=== PATIENT | female | born 1965 | race Caucasian/White ===

== ENCOUNTER 2020-02-03 15:49 | Outpatient (CLI) | payer OTHER, SELFPAY ==
--- NOTE | ~2020-02-03 | XR_ITS ---
XR chest 2V DATE: 02/03/2020 16:08 INDICATION: Rodgers virus respiratory disease TECHNIQUE: PA and lateral views COMPARISON: 11/07/2017 portable AP chest at 1940 hours FINDINGS: There is mild discoid atelectasis or scarring in the right lower lung. No pulmonary consol idation, pulmonary vascular congestion or pleural effusion or pneumothorax. Normal heart size. Surgical clips, right upper quadrant. IMPRESSION: Discoid atelectasis or scarring, right lower lung Reviewed, dictated and finalized at location A.
== END 2020-02-03 15:50 | disposition home or self-care (01) ==
PROVIDERS: PCP Physician Assistant; Visit Provider Physician Assistant
DX: J06.9 Acute upper respiratory infection, unspecified (principal); Z20.828 Contact with and (suspected) exposure to other viral communicable diseases; R91.8 Other nonspecific abnormal finding of lung field
CPT/HCPCS: 71046

== ENCOUNTER → 2020-10-20 17:42 | Outpatient (CLI) | payer OTHER, SELFPAY ==
--- NOTE | ~2020-10-20 | MM_ITS ---
EXAMINATION: MM screening haylie BI w ruben HISTORY: Screening mammogram TECHNIQUE: Craniocaudal and mediolateral oblique 3-D tomosynthesis images were obtained and synthetic 2-D images were generated. CAD analysis was submitted and interpreted. COMPARISON: , 04/01/2014 bilateral digital screening mammogram examinations BREAST PARENCHYMAL COMPOSITION: There are scattered areas of fibroglandular density. FINDINGS: There is no evidence of suspicious mass, calcification, or architectural distortion to sugg est malignancy in either breast. There has been no suspicious interval change. IMPRESSION: 1. No mammographic evidence of malignancy. 2. Recommend routine screening mammography in one year. BI-RADS Category 1: Negative Reviewed, dictated and finalized at location A.
== END ==
PROVIDERS: Visit Provider Physician Assistant
DX: Z12.31 Encounter for screening mammogram for malignant neoplasm of breast (principal)
CPT/HCPCS: 77063; 77067

== ENCOUNTER 2024-01-08 13:23 | Outpatient (CLI) | payer OTHER, SELFPAY ==
--- NOTE | ~2024-01-08 | MM_ITS ---
EXAMINATION: MM screening haylie BI w ruben HISTORY: Screening TECHNIQUE: Craniocaudal and mediolateral oblique 3-D tomosynthesis images were obtained and synthetic 2-D images were generated. CAD analysis was submitted and interpreted. COMPARISON: Comparison to multiple prior studies sequentially, with oldest reviewed study dated 03/23. BREAST PARENCHYMAL COMPOSITION: Not dense: There are scattered areas of fibroglandular density. FINDINGS: There is no evidence of suspicious mass, calcification, or architectural distortion to sugg est malignancy in either breast. There has been no suspicious interval change. IMPRESSION: 1. No mammographic evidence of malignancy. 2. Recommend routine screening mammography in one year. BI-RADS Category 1: Negative Reviewed, dictated and finalized at location B.
== END 2024-01-08 13:24 ==
LOC: MICIMG 13:26
PROVIDERS: PCP Physician Assistant; Visit Provider Physician Assistant
DX: Z12.31 Encounter for screening mammogram for malignant neoplasm of breast (principal)
CPT/HCPCS: 77063; 77067

== ENCOUNTER 2024-06-08 14:44 | Outpatient (CLI) | payer OTHER, SELFPAY ==
--- NOTE | ~2024-06-08 | US_ITS ---
EXAMINATION: US renal BI DATE: 06/08/2024 15:02 INDICATION: Elevated creatinine. Left flank pain. TECHNIQUE: Multiple ultrasound grayscale images of the kidneys were obtained. COMPARISON: 11/05/2014 FINDINGS: The right kidney measures 11.5 x 6.2 x 5.6 cm. The left kidney measures 11.3 x 5.7 x 4.2 cm. The kidn eys demonstrate normal echogenicity. 1.2 cm anechoic cyst at the mid right kidney. There is no hydron ephrosis in either kidney. No stones identified. The bladder is normal. IMPRESSION: 1. 1.2 cm right renal cyst. Otherwise normal kidneys without hydronephrosis. Reviewed, dictated and finalized at location A. EY DOCTOR
== END 2024-06-08 14:45 | disposition home or self-care (01) ==
LOC: MICIMG 14:45
PROVIDERS: PCP Physician Assistant; Visit Provider Physician Assistant
DX: R79.89 Other specified abnormal findings of blood chemistry (principal); N28.1 Cyst of kidney, acquired
CPT/HCPCS: 76775

== ENCOUNTER 2024-07-13 16:54 | Outpatient (CLI) | payer OTHER, SELFPAY ==
--- NOTE | ~2024-07-13 | CT_ITS ---
CLINICAL INDICATION: Abdominal pain COMPARISON: 11/05/2014. TECHNIQUE: Multiple contiguous axial images of the abdomen and pelvis were performed without the admi nistration of intravenous contrast The dose-length product (DLP) was 867.25 mGy-cm. Automated exposure control and iterative reconstruction technique were employed. FINDINGS/OBSERVATIONS: Visualized lower thorax: The bilateral lung bases are clear. The heart is of normal size, without pericardial effusion. Small hiatal hernia is present. Liver: The liver demonstrates homogeneous attenuation and is not enlarged measuring 18 cm in longitudinal di mension. Gallbladder and biliary system: The gallbladder is surgically absent. Pancreas: Limited evaluation of the pancreas secondary to the lack of intravenous contrast. Spleen: The spleen demonstrates homogeneous attenuation and is not enlarged measuring 9 cm in longitudinal di mension. Kidneys: The bilateral kidneys are unremarkable, without hydronephrosis or renal calculi. Adrenal glands: Unremarkable. Gastrointestinal tract: Fecal stasis within the rectum. Appendix: The air-filled appendix is of normal caliber (axial series, images 112 - 132) Vasculature: Unremarkable. Lymph nodes: No pathologically enlarged or morphologically suspicious lymph nodes within the retroperitoneum or at the root of the mesentery. Pelvic structures: The bladder is distended, and otherwise unremarkable. The uterus is anteverted and retroflexed, and otherwise unremarkable. Body wall and musculoskeletal: Degenerative disease within the lumbar spine, with osteophyte formation, disc space narrowing, endpla te changes and vacuum phenomena. IMPRESSION: No acute intra-abdominal pathology, as detailed above. Reviewed, dictated and finalized at location A. [employer]
--- OUTSIDE RECORDS SUMMARY | 2024-07-15 20:07 | XMS_ITS | Data Portability ---
Author Organization [place] [facility] [employer], Main Office Address [address] [place] [address] Care Team Providers Care Multimedia Services Manager Name Role Phone JOSE RAMON PRICE Primary Care Provider [phone] JOSE RAMON PRICE Referring Provider [phone] Assessment Encounter Date Assessment Date Assessment LastModified by Organization Details LastModified Time 09/05/2022 09/05/2022 cologuard negative 07/2020 pt encouraged to schedule gyne exam mammogram due. labs due. eye and dental due. [email or web address] Not available 09/05/2022 09:24:10 Plan of Treatment Reminders Order Date Submit Date Provider Last Modified By Organization Details Last Modified Time Details Appointments None recorded. Lab TSH + free T4, serum 2022 023 [facility], [address], [place], [address], 3 16:29:19 T3, free, serum or plasma 2022 023 [facility], [address], [place], [address], 3 16:29:22 insulin, serum 2022 023 [employer], [address], [place], [address], 3 16:29:27 lipid panel, serum 2022 023 [facility], [address], [place], [address], 3 16:29:20 CBC w/ auto diff [address] [facility], [address], [place], [address], 3 16:29:23 CMP, serum or plasma 2022 023 [facility], [address], [place], [address], 3 16:29:21 urinalysis complete, reflex culture 2022 023 [facility], [address], [place], [address], 3 16:29:24 C-reactive protein, quantitativ e, serum or plasma 2022 023 [facility], [address], [place], [address], 3 16:29:26 rf (rheumatoid factor), serum 2022 023 [facility], [address], [place], [address], 3 16:29:25 HbA1c (hemoglobin A1c), blood 2022 023 [facility], [address], [place], [address], 3 16:29:22 Referral None recorded. Procedures None recorded. Surgeries None recorded. Imaging MAMMO, screening, digital, bilateral 2022 023 [facility], [address], [place], [address], 3 05:02:16 Medication Orders Wegovy 0.25 mg/0.5 mL subcutaneou s pen injector 2022 023 [id number], [address] [place], [address], 3 09:26:25 alprazolam 0.25 mg tablet 2022 023 [id number], [address] [place], [address], 3 09:35:31 Wellbutrin XL 150 mg 24 hr tablet, extended release 2022 023 [email or web address] [id number] [address] [place], [address], 3 16:00:53 ergocalcife rol (vitamin D2) 1,250 mcg (50,000 unit) capsule 2022 023 [facility], [address] [place], [address], 3 09:26:26 chlorthalid one 25 mg tablet 2022 023 [facility], [address] [place], [address], 3 09:26:27 Patient TargetsNo targets recorded. Patient InstructionsNo instructions recorded. Reason for Referral None Reported. Results Created Date Observation Date Name Description Value Unit Range Abnormal Flag Note LastModifiedBy Organization Detail LastModifiedTime 09/07/1909/07/2022 TSH+F REE T4 TSH 3.37 mIU/L 0.40-4 .50 normal Not Available [facility] [address] [place], [address], 09/07/2022 16:29:19 09/07/19 23 09/07/2022 TSH+F REE T4 T4, free 1.3 NG/dL 0.8-1. 8 normal Not Available [address] [address] [place], [address], 09/07/2022 16:29:19 09/07/19 23 09/07/2022 LIPID PANEL WITH RATIO S cholesterol, total 173 mg/dL <200 normal Not Available [address] [address] [place], [address], 09/07/2022 16:29:20 09/07/19 23 09/07/2022 LIPID PANEL WITH RATIO S HDL cholesterol 58 mg/dL > or = 50 normal Not Available [address], [address], 09/07/2022 16:29:20 09/07/19 23 09/07/2022 LIPID PANEL WITH RATIO S triglyceride s 96 mg/dL <150 normal Not Available [address], [address], 09/07/2022 16:29:20 09/07/19 23 09/07/2022 LIPID PANEL WITH RATIO S LDL-choleste rol 96 mg/dL _(ferny c) normal Refer ence range : <100 Chuy able range <100 mg/dL for prima ry preve ntion ; <70 mg/dL for patie nts with CHD or diabe tic patie nts with > or = 2 CHD risk facto rs. LDL-C is now calcu lated using the Monica n-Hop kins calcu raleigh n, which is a valid ated novel metho d provi narda nogueira accur acy than the Fried della equat ion in the estim ation of LDL-C . Monica crum SS et al. ONESIMO. 2013; 310(1 9): 2061- 2068 (http ://ed ucati on.Qu Priscila garsiaCoravins. com/f aq/FA Q164) Not Available [facility] [address] [address] [place], [address], 09/07/2022 16:29:20 09/07/19 09/07/2022 LIPID PANEL WITH RATIO S chol/HDLC ratio 3.0 (calc ) <5.0 normal Not Available [address], [address], 09/07/2022 16:29:20 09/07/19 23 09/07/2022 LIPID PANEL WITH RATIO S LDL/HDL ratio 1.7 (calc ) Below avera ge Risk: <2.34 Keene ge Risk: 2.35- 4.12 Moder ate Risk: 4.13- 5.56 High Risk: >5.57 Not Available [address] [place], [address], 09/07/2022 16:29:20 09/07/19 23 09/07/2022 LIPID PANEL WITH RATIO S non HDL cholesterol 115 mg/dL _(ferny c) <130 normal For patie nts with diabe bryanna plus 1 major ASCVD risk facto r, treat ing to a non-H DL-C goal of <100 mg/dL (LDL- C of <70 mg/dL ) is consi gerardod a cristophera peuti c optio n. Not Available [address], [address], 09/07/2022 16:29:20 09/07/19 23 09/07/2022 COMPR EHENS SCOTT METAB OLIC PANEL glucose 105 mg/dL 65-139 normal Non-f astin g refer ence inter farrah Not Available [address] [address] [place], [address], 09/07/2022 16:29:21 09/07/19 23 09/07/2022 COMPR EHENS SCOTT METAB OLIC PANEL urea nitrogen (BUN) 16 mg/dL 7-25 normal Not Available [address] [address] [place], [address], 09/07/2022 16:29:21 09/07/19 23 09/07/2022 COMPR EHENS SCOTT METAB OLIC PANEL creatinine 0.94 mg/dL 0.50-1 .03 normal Not Available [address], [address], 09/07/2022 16:29:21 09/07/19 23 09/07/2022 COMPR EHENS SCOTT METAB OLIC PANEL eGFR 71 mL/mi n/1.7 3m2 > or = 60 normal The eGFR is based on the CKD-E PI 2020 equat ion. To calcu late the new eGFR from a previ ous Creat inine or Cysta tin C resul t, go to https ://adelia w.ayla cedilloy.o sai/kelly kaba s/ kdoqi /gfr% 5Fcal culat or Not Available [address], [address], 09/07/2022 16:29:21 09/07/19 23 09/07/2022 COMPR EHENS SCOTT METAB OLIC PANEL BUN/creatini ne ratio NOT APPLIC ABLE (calc ) 6-22 Not Available [address], [address], 09/07/2022 16:29:21 09/07/19 23 09/07/2022 COMPR EHENS SCOTT METAB OLIC PANEL sodium 141 mmol/ L 135-14 6 normal Not Available [address], [address], 09/07/2022 16:29:21 09/07/19 23 09/07/2022 COMPR EHENS SCOTT METAB OLIC PANEL potassium 4.3 mmol/ L 3.5-5. 3 normal Not Available [facility] [address], [address], 09/07/2022 16:29:21 09/07/19 23 09/07/2022 COMPR EHENS SCOTT METAB OLIC PANEL chloride 107 mmol/ L 98-110 normal Not Available [facility] [address], [address], 09/07/2022 16:29:21 09/07/19 23 09/07/2022 COMPR EHENS SCOTT METAB OLIC PANEL carbon dioxide 26 mmol/ L 20-32 normal Not Available [address], [address], 09/07/2022 16:29:21 09/07/19 23 09/07/2022 COMPR EHENS SCOTT METAB OLIC PANEL calcium 9.6 mg/dL 8.6-10 .4 normal Not Available [address], [address], 09/07/2022 16:29:21 09/07/19 23 09/07/2022 COMPR EHENS SCOTT METAB OLIC PANEL protein, total 6.6 g/dL 6.1-8. 1 normal Not Available [address], [address], 09/07/2022 16:29:21 09/07/19 23 09/07/2022 COMPR EHENS SCOTT METAB OLIC PANEL albumin 4.4 g/dL 3.6-5. 1 normal Not Available [address], [address], 09/07/2022 16:29:21 09/07/19 23 09/07/2022 COMPR EHENS SCOTT METAB OLIC PANEL globulin 2.2 g/dL_ (calc ) 1.9-3. 7 normal Not Available [address], [address], 09/07/2022 16:29:21 09/07/19 23 09/07/2022 COMPR EHENS SCOTT METAB OLIC PANEL albumin/glob ulin ratio 2.0 (calc ) 1.0-2. 5 normal Not Available [address], [address], 09/07/2022 16:29:21 09/07/19 23 09/07/2022 COMPR EHENS SCOTT METAB OLIC PANEL bilirubin, total 0.6 mg/dL 0.2-1. 2 normal Not Available [address] [address] [place], [address], 09/07/2022 16:29:21 09/07/19 23 09/07/2022 COMPR EHENS SCOTT METAB OLIC PANEL alkaline phosphatase 49 U/L 37-153 normal Not Available [facility] [address] [address] [place], [address], 09/07/2022 16:29:21 09/07/19 23 09/07/2022 COMPR EHENS SCOTT METAB OLIC PANEL AST 12 U/L 10-35 normal Not Available [address] [address] [place], [address], 09/07/2022 16:29:21 09/07/19 23 09/07/2022 COMPR EHENS SCOTT METAB OLIC PANEL ALT 15 U/L 6-29 normal Not Available [address] [address] [place], [address], 09/07/2022 16:29:21 09/07/19 23 09/07/2022 HEMOG LOBIN A1C hemoglobin A1C 5.5 %_of_ total _HGB <5.7 normal For the purpo se of jarethai beulah for the prese nce of diabe bryanna: <5.7% Consi stent with the absen ce of diabe bryanna 5.7-6 .4% Consi stent with incre ased risk for diabe bryanna (pred iabet es) > or =6.5% Consi stent with diabe bryanna This assay resul t is consi stent with a decre ased risk of diabe bryanna. Curre ntly, no conse nsus exist miguel laboy use of hemog lobin A1c for diagn osis of diabe bryanna in child jed. Accor narda to Ameri can Diabe bryanna Assoc iatio n (ADA) guide lines , hemog lobin A1c <7.0% repre sents optim al contr ol in non-p regna nt diabe tic patie nts. Diffe rent metri cs may apply to speci fic patie nt popul ation s. [facility] al Care in Diabe bryanna(A DA). Not Available [address], [address], 09/07/2022 16:29:22 09/07/19 23 09/07/2022 T3, FREE T3, free 3.1 pg/mL 2.3-4. 2 normal Not Available [facility] [address] [address] [place], [address], 09/07/2022 16:29:22 09/07/19 23 09/07/2022 CBC (INCL UDES DIFF/ PLT) white blood cell count 4.9 thous and/u L 3.8-10 .8 normal Not Available [facility] [address], [address], 09/07/2022 16:29:23 09/07/19 23 09/07/2022 CBC (INCL UDES DIFF/ PLT) red blood cell count 4.30 debora on/uL 3.80-5 .10 normal Not Available [address], [address], 09/07/2022 16:29:23 09/07/19 23 09/07/2022 CBC (INCL UDES DIFF/ PLT) hemoglobin 13.4 g/dL 11.7-1 5.5 normal Not Available [facility] [address], [address], 09/07/2022 16:29:23 09/07/19 23 09/07/2022 CBC (INCL UDES DIFF/ PLT) hematocrit 38.1 % 35.0-4 5.0 normal Not Available [facility] [address], [address], 09/07/2022 16:29:23 09/07/19 23 09/07/2022 CBC (INCL UDES DIFF/ PLT) MCV 88.6 fL 80.0-1 00.0 normal Not Available [address], [address], 09/07/2022 16:29:23 09/07/19 23 09/07/2022 CBC (INCL UDES DIFF/ PLT) MCH 31.2 pg 27.0-3 3.0 normal Not Available [address], [address], 09/07/2022 16:29:23 09/07/19 23 09/07/2022 CBC (INCL UDES DIFF/ PLT) MCHC 35.2 g/dL 32.0-3 6.0 normal Not Available [address], [address], 09/07/2022 16:29:23 09/07/19 23 09/07/2022 CBC (INCL UDES DIFF/ PLT) RDW 12.0 % 11.0-1 5.0 normal Not Available [address], [address], 09/07/2022 16:29:23 09/07/19 23 09/07/2022 CBC (INCL UDES DIFF/ PLT) platelet count 308 thous and/u L 140-40 0 normal Not Available [address], [address], 09/07/2022 16:29:23 09/07/19 23 09/07/2022 CBC (INCL UDES DIFF/ PLT) MPV 9.8 fL 7.5-12 .5 normal Not Available [address], [address], 09/07/2022 16:29:23 09/07/19 23 09/07/2022 CBC (INCL UDES DIFF/ PLT) absolute neutrophils 2955 cells /uL 1500-7 800 normal Not Available [address], [address], 09/07/2022 16:29:23 09/07/19 23 09/07/2022 CBC (INCL UDES DIFF/ PLT) absolute lymphocytes 1490 cells /uL 850-39 00 normal Not Available [address], [address], 09/07/2022 16:29:23 09/07/19 23 09/07/2022 CBC (INCL UDES DIFF/ PLT) absolute monocytes 250 cells /uL 200-95 0 normal Not Available [address], [address], 09/07/2022 16:29:23 09/07/19 23 09/07/2022 CBC (INCL UDES DIFF/ PLT) absolute eosinophils 137 cells /uL 15-500 normal Not Available [address], [address], 09/07/2022 16:29:23 09/07/19 23 09/07/2022 CBC (INCL UDES DIFF/ PLT) absolute basophils 69 cells /uL 0-200 normal Not Available [address], [address], 09/07/2022 16:29:23 09/07/19 23 09/07/2022 CBC (INCL UDES DIFF/ PLT) neutrophils 60.3 % normal Not Available [address], [address], 09/07/2022 16:29:23 09/07/19 23 09/07/2022 CBC (INCL UDES DIFF/ PLT) lymphocytes 30.4 % normal Not Available [address], [address], 09/07/2022 16:29:23 09/07/19 23 09/07/2022 CBC (INCL UDES DIFF/ PLT) monocytes 5.1 % normal Not Available [address], [address], 09/07/2022 16:29:23 09/07/19 23 09/07/2022 CBC (INCL UDES DIFF/ PLT) eosinophils 2.8 % normal Not Available [address], [address], 09/07/2022 16:29:23 09/07/19 23 09/07/2022 CBC (INCL UDES DIFF/ PLT) basophils 1.4 % normal Not Available [address], [address], 09/07/2022 16:29:23 09/07/19 23 09/07/2022 URINA LYSIS , COMPL ETE W/REF EMRE TO CULTU RE color YELLOW yellow normal Not Available [address], [address], 09/07/2022 16:29:24 09/07/19 23 09/07/2022 URINA LYSIS , COMPL ETE W/REF EMRE TO CULTU RE appearance CLEAR clear normal Not Available [address], [address], 09/07/2022 16:29:24 09/07/19 23 09/07/2022 URINA LYSIS , COMPL ETE W/REF EMRE TO CULTU RE specific gravity 1.013 1.001- 1.035 normal Not Available [address], [address], 09/07/2022 16:29:24 09/07/19 23 09/07/2022 URINA LYSIS , COMPL ETE W/REF EMRE TO CULTU RE pH 7.0 5.0-8. 0 normal Not Available [address], [address], 09/07/2022 16:29:24 09/07/19 23 09/07/2022 URINA LYSIS , COMPL ETE W/REF EMRE TO CULTU RE glucose NEGATI VE negati ve normal Not Available [address] [address] [place], [address], 09/07/2022 16:29:24 09/07/19 23 09/07/2022 URINA LYSIS , COMPL ETE W/REF EMRE TO CULTU RE bilirubin NEGATI VE negati ve normal Not Available [address] [address] [place], [address], 09/07/2022 16:29:24 09/07/19 23 09/07/2022 URINA LYSIS , COMPL ETE W/REF EMRE TO CULTU RE ketones NEGATI VE negati ve normal Not Available [address] [address] [place], [address], 09/07/2022 16:29:24 09/07/19 23 09/07/2022 URINA LYSIS , COMPL ETE W/REF EMRE TO CULTU RE occult blood NEGATI VE negati ve normal Not Available [address] [address] [address] , [place], [address], 09/07/2022 16:29:24 09/07/19 23 09/07/2022 URINA LYSIS , COMPL ETE W/REF EMRE TO CULTU RE protein NEGATI VE negati ve normal Not Available [address] [address] [place], [address], 09/07/2022 16:29:24 09/07/19 23 09/07/2022 URINA LYSIS , COMPL ETE W/REF EMRE TO CULTU RE nitrite NEGATI VE negati ve normal Not Available [address] [address] [place], [address], 09/07/2022 16:29:24 09/07/19 23 09/07/2022 URINA LYSIS , COMPL ETE W/REF EMRE TO CULTU RE leukocyte esterase NEGATI VE negati ve normal Not Available [facility] [address] [address] [place], [address], 09/07/2022 16:29:24 09/07/19 23 09/07/2022 URINA LYSIS , COMPL ETE W/REF EMRE TO CULTU RE WBC NONE SEEN /hpf < or = 5 normal Not Available [address], [address], 09/07/2022 16:29:24 09/07/19 23 09/07/2022 URINA LYSIS , COMPL ETE W/REF EMRE TO CULTU RE RBC NONE SEEN /hpf < or = 2 normal Not Available [address], [address], 09/07/2022 16:29:24 09/07/19 23 09/07/2022 URINA LYSIS , COMPL ETE W/REF EMRE TO CULTU RE squamous epithelial cells 0-5 /hpf < or = 5 Not Available [address], [address], 09/07/2022 16:29:24 09/07/19 23 09/07/2022 URINA LYSIS , COMPL ETE W/REF EMRE TO CULTU RE bacteria NONE SEEN /hpf none seen normal Not Available [address], [address], 09/07/2022 16:29:24 09/07/19 23 09/07/2022 URINA LYSIS , COMPL ETE W/REF EMRE TO CULTU RE hyaline cast NONE SEEN /lpf none seen normal Not Available [address], [address], 09/07/2022 16:29:24 09/07/19 23 09/07/2022 REFLE XIVE URINE CULTU RE reflexive urine culture NO CULTU RE INDIC ATED Not Available [address], [address], 09/07/2022 16:29:25 09/07/19 23 09/07/2022 RHEUM ATOID FACTO R rheumatoid factor <14 IU/mL <14 normal Not Available [facility] [address] [place], [address], 09/07/2022 16:29:25 09/07/1909/07/2022 C-SAMEER CTIVE PROTE IN C-reactive protein 12.3 mg/L <8.0 high Not Available [facility] [address] [place], [address], 09/07/2022 16:29:26 09/07/19 23 09/07/2022 INSUL IN insulin 8.3 uIU/m L normal Refer ence Range < or = 18.4 Risk: Optim al < or = 18.4 Moder ate NA High >18.4 Adult cardi ovasc ular event risk categ ory cut point s (opti mal, moder ate, high) are based on Insul in Refer ence Inter farrah studi es perfo rmed at [facility] in 2021. Not Available [facility] [address] [address] , [place], [address], 09/07/2022 16:29:26 Result Notes None recorded. Problems Name Problem SNOMED Code Status Onset Date Resolution Date Notes Provider Name and Address Organization Details Recorded Time Renewal of prescripti on Active 2021 Not Available [facility] 3 08:09:22 Infection of skin 648738404 Completed Not Available [facility] 3 08:09:22 Benign essential hypertensi on 8771919 Active 2021 [place], [place] [facility] 3 11:23:59 Diabetes mellitus screening Active 2021 Not Available [facility] 3 08:09:22 Insomnia 640496260 Active 2018 Not Available [facility] 3 08:09:23 Plantar fasciitis 926661198 Completed Not Available [facility] 3 08:09:23 Abdominal pain 29538610 Completed Not Available [facility] 3 08:09:23 Screening mammograph y Active 2021 Not Available [facility] 3 08:09:23 Long-term drug therapy Active 2021 Not Available [facility] 3 08:09:23 Adult health examinatio n Active 2021 Not Available [facility] 3 08:09:23 Low back pain 083084620 Active Not Available [facility] 3 08:09:23 Cyst of skin 035865167 Completed Not Available [facility] 3 08:09:23 Right lower quadrant pain 717467674 Completed Not Available [facility] 3 08:09:23 Current tear of medial cartilage AND/OR meniscus of knee Active Not Available [facility] 3 08:09:23 Knee pain Active Not Available [facility] 3 08:09:23 Acute otitis media 1183079 Completed Not Available [facility] 3 08:09:23 Depressive disorder 21055193 Active Not Available [facility] 3 08:09:23 Migraine 38828586 Active Not Available [facility] 3 08:09:24 Body mass index 40+ - severely obese 413596905 Active 2021 Not Available [facility] 3 08:09:24 Wound 690501597 Completed Not Available [facility] 3 08:09:24 Epidermoid cyst of skin 133141990 Completed Not Available [facility] 3 08:09:24 Nausea 027849449 Completed Not Available [facility] 3 08:09:24 Anxiety 43663500 Active Not Available [facility] 3 08:09:24 Alopecia 03989948 Active Not Available [facility] 3 08:09:24 Joint pain 37865106 Completed Not Available [facility] 3 08:09:24 Swelling 63894992 Active 2021 Not Available [facility] 3 08:09:24 Urinary tract infectious disease 41158256 Completed Not Available [facility] 3 08:09:24 Hemorrhoid s 19176990 Active Not Available [facility] 3 08:09:24 Cholelithi asis with obstructio n 47771813 Completed Not Available [facility] 3 08:09:25 Abnormal vision 2918819 Completed Not Available [facility] 3 08:09:25 Fatigue 81132928 Completed Not Available [facility] 3 08:09:25 Influenza- like illness 07305302 Completed Not Available [facility] 3 08:09:25 Weight gain 6109226 Active 2022 GREG Appiah [address], [address], [place], [address] , [facility] 3 09:21:53 Multiple joint pain 21617359 Active 2022 GREG Appiah [address], [address], [place], [address] , [facility] 3 09:22:09 Vitamin D deficiency 77046739 Active 2022 GREG Appiah [address], [address], [place], [address] , [facility] 3 09:24:29 Menopausal symptom 49160911 Active 2022 GREG Appiah [address], [address], [place], [address] , [facility] 3 09:25:55 Mixed anxiety and depressive disorder 272309175 Active 2022 GREG Appiah [address], [address], [place], [address] , [facility] 3 09:34:51 Onychomyco sis of toenails 466770081 Active 2022 GREG Appiah [address], [address], [place], [address] , [employer] [facility] 3 16:59:20 COVID-19 079495054 Active 2022 GREG Appiah [address], [address], [place], [address] , [place] [facility] 11:05:51 Problem Notes None recorded. Procedures Surgical History Date Name Laterality Status Provider Name and Address Organization Details Recorded Time 06/23/19 10 Date of Last Colonoscopy completed Not Available [facility] 08/21/2022 08:06:35 Partial hysterectomy completed Not Available [facility] 08/21/2022 08:06:37 repair of meniscus completed Not Available [facility] 08/21/2022 08:06:37 Cholecystectomy completed Not Available [facility] 08/21/2022 08:06:37 Imaging Results None recorded. Procedure Notes None recorded. Medical Equipment None Reported. Allergies No known drug allergies Medications Name Sig Start Date Stop Date Status Note LastModified by Organization Details LastModified Time sleepio mis active Not Available Not Available Not Available celecoxib 200 mg capsule 08/06 completed Not Available Not Available Not Available cyclobenza gayla 10 mg tablet TAKE 1 TABLET BY MOUTH TWICE A DAY NEEDED 08/06 completed Not Available Not Available Not Available amoxicilli n 500 mg capsule TAKE 2 CAPSULES NOW, THEN TAKE 1 CAPSULE EVERY 6 HOURS UNTIL FINISHED active Not Available Not Available No t Available Anusol-HC 2.5 % rectal cream with applicator Insert by rectal route one applicat or after bowel movement s and at bedtime. 10/10 completed Not Available Not Available Not Available Topamax 25 mg tablet Take 1 tablet at hs for 1 week then one tablet bid for 1 week then one tablet in the am and two at hs for 1 week then 2 tablets bid 06/27 completed Not Available Not Available Not Available orlistat 120 mg capsule active Not Available Not Available Not Available azithromyc in 250 mg tablet TAKE 2 TABLETS (500 MG) BY ORAL ROUTE ONCE DAILY FOR 1 DAY THEN 1 TABLET (250 MG) BY ORAL ROUTE ONCE DAILY FOR 4 DAYS active Not Available Not Available No t Available tramadol 37.5 mg-acetami nophen 325 mg tablet TAKE 1-2 TABS BY MOUTH EVERY 6 HOURS NEEDED 08/06 completed Not Available Not Available Not Available hydrocodon e 5 mg-acetami nophen 325 mg tablet 08/06 completed Not Available Not Available Not Available meloxicam 15 mg tablet TK 1 T PO D PRN active Not Available Not Available No t Available Medrol (Shaheed) 4 mg tablets in a dose pack use as directed 05/25 completed Not Available Not Available Not Available rizatripta n 10 mg tablet TK 1 T PO QD 06/27 completed Not Available Not Available Not Available methylpred nisolone 4 mg tablet TAKE 6 TABLETS ON DAY 1 AND DECREASE BY 1 TAB EACH DAY FOR A TOTAL OF 6 DAYS 03/11 completed Not Available Not Available Not Available penicillin V potassium 500 mg tablet active Not Available Not Available Not Available acetaminop hen 300 mg-codeine 30 mg tablet TAKE 1 TABLET EVERY 3 TO 4 HOURS NEEDED FOR PAIN active Not Available Not Available No t Available chlorthali done 25 mg tablet TAKE 1 TABLET BY MOUTH EVERY DAY active Not Available Not Available No t Available sulfametho xazole 800 mg-trimeth oprim 160 mg tablet active Not Available Not Available No t Available ketorolac 10 mg tablet active Not Available Not Available Not Available oxycodone- acetaminop hen 5 mg-325 mg tablet 08/06 completed Not Available Not Available Not Available terbinafin e HCl 250 mg tablet TAKE 1 TABLET BY MOUTH EVERY DAY active Not Available Not Available No t Available amoxicilli n 875 mg tablet TAKE 1 TABLET BY MOUTH TWICE A DAY 08/06 completed Not Available Not Available Not Available alprazolam 0.25 mg tablet TAKE 1 TO 2 TABLETS BY MOUTH AT BEDTIME NEEDED 2022 active Not Available Not Available Not Avai lable citalopram 20 mg tablet TK 1 T PO D 06/27 completed Not Available Not Available Not Available methocarba mol 750 mg tablet Take 1 tablet 3 times a day by oral route as needed. active Not Available Not Available No t Available estradiol 1 mg tablet TK 1 T PO ONCE D 08/11 completed Not Available Not Available Not Available Kenalog 10 mg/mL suspension for injection In office injectio n administ ered by the provider 08/06 completed [facility]: [id number] Not Available Not Available Not Available Proctozone -HC 2.5 % topical cream perineal applicator INSERT RECTALLY ONE APPLICAT OR AFTER BOWEL MOVEMENT S AND AT BEDTIME active Not Available Not Available No t Available rizatripta n 10 mg disintegra ting tablet TAKE 1 TAB BY MOUTH AT ONSET OF HEADACHE , MAY REPEAT AFTER 1 HOUR IF NEEDED. MAY 20MG /DAY active Not Available Not Available No t Available hydrocodon e 7.5 mg-acetami nophen 325 mg tablet Take 1 tablet every 6 hours by oral route. active refill Not Available Not Available No t Available cyanocobal rick (vit B-12) 1,000 mcg/mL injection solution 08/11 completed Not Available Not Available Not Available nitrofuran toin macrocryst al 100 mg capsule active Not Available Not Available Not Available BD Luer-Carlito Syringe 3 mL 25 gauge x 1 USE Q 7 DAYS UTD 08/11 completed Not Available Not Available Not Available fluoxetine 10 mg capsule TAKE 1 CAPSULE BY MOUTH every evening. 08/06 completed Not Available Not Available Not Available triamteren e 37.5 mg-hydroch lorothiazi de 25 mg tablet TAKE 1 TABLET BY MOUTH EVERY DAY 09/04 completed Not Available Not Available Not Available diclofenac sodium 75 mg tablet,del ayed release TAKE 1 TABLET BY MOUTH TWICE A DAY WITH MEALS NEEDED active Not Available Not Available No t Available mupirocin 2 % topical ointment 08/06 completed Not Available Not Available Not Available triamteren e 75 mg-hydroch lorothiazi de 50 mg tablet TAKE 1 TABLET EVERY DAY BY ORAL ROUTE IN THE MORNING. 09/05 completed Not Available Not Available Not Available ergocalcif stephanie (vitamin D2) 1,250 mcg (50,000 unit) capsule TAKE 1 CAPSULE BY MOUTH ONCE A WEEK active Not Available Not Available No t Available topiramate 100 mg tablet TK 1 T PO BID active Not Available Not Available No t Available Senna Plus 8.6 mg-50 mg tablet PLEASE SEE ATTACHED FOR DETAILED DIRECTIO NS 08/07 completed Not Available Not Available Not Available bupropion HCl XL 300 mg 24 hr tablet, extended release TAKE 1 TABLET BY MOUTH EVERY DAY active Not Available Not Available No t Available bupropion HCl XL 150 mg 24 hr tablet, extended release TAKE 1 TABLET BY MOUTH EVERY DAY active Not Available Not Available No t Available topiramate 50 mg tablet TK 1 T PO QAM AND 2 TS AT NIGHT 06/27 completed Not Available Not Available Not Available eszopiclon e 3 mg tablet TAKE 1 TABLET BY MOUTH EVERY DAY AT BEDTIME 03/11 completed Not Available Not Available Not Available eszopiclon e 2 mg tablet 08/11 completed Not Available Not Available Not Available lidocaine (PF) 10 mg/mL (1 %) injection solution In office injectio n administ ered by the provider 08/06 completed [facility]: [id number] [phone] Not Available Not Available Not Available Eliquis 2.5 mg tablet 08/06 completed Not Available Not Available Not Available Wegovy 0.25 mg/0.5 mL subcutaneo us pen injector INJECT 0.25 MG SUBCUTAN EOUSLY ONE TIME PER WEEK DIRECTED active Not Available Not Available No t Available Paxlovid 300 mg (150 mg x 2)-100 mg tablets in a dose pack PLEASE SEE ATTACHED FOR DETAILED DIRECTIO NS active Not Available Not Available No t Available Zepbound 2.5 mg/0.5 mL subcutaneo us pen injector Inject 2.5 mg every week by subcutan eous route as directed . 06/09 completed Not Available Not Available Not Available Vitals Date Recorded Body mass index (BMI) Body height Oxygen saturation Oxygen saturation in Arterial blood by Pulse oximetry Heart rate Respiratory rate Body temperature Body weight Systolic blood pressure Diastolic blood pressure Provider Name and Address Organization Details Last Updated DateTime 2 42.9 kg/m2 167.64 cm 98 % 98 % 79 /min 16 /min 97.8 [degF] 807119. 13 g 148 mm[Hg] 88 mm[Hg] Not Available [employer] 3 08:06:50 Date Recorded Body temperature Body height Body mass index (BMI) Body weight Respiratory rate Oxygen saturation Oxygen saturation in Arterial blood by Pulse oximetry Heart rate Systolic blood pressure Diastolic blood pressure Provider Name and Address Organization Details Last Updated DateTime 3 98.3 [degF] 167.64 cm 44.7 kg/m2 894331. 09 g 16 /min 98 % 98 % 93 /min 150 mm[Hg] 90 mm[Hg] STANTON Giron [place] [facility] [place] [employer] [facility] 3 09:04:57 Date Recorded Body height Body temperature Body mass index (BMI) Body weight Respiratory rate Oxygen saturation Oxygen saturation in Arterial blood by Pulse oximetry Heart rate Systolic blood pressure Diastolic blood pressure Provider Name and Address Organization Details Last Updated DateTime 3 167.64 cm 97.5 [degF] 44.2 kg/m2 713126. 31 g 16 /min 95 % 95 % 94 /min 142 mm[Hg] 90 mm[Hg] STANTON Giron [facility] [employer] [facility] 3 15:27:30 Social History Question Answer Notes LastModified by Organizat ion Details LastModified Time Tobacco Smoking Status Current Some Day Smoker STANTON Giron null, GORDO [place] [facility] [employer] [facility] 09/05/2022 08:56:19 Do You Have An Advance Directive? No [id number] Information not available 08/21/2022 What Is Your Level Of Alcohol Consumption? Occasional [id number] Information not available 08/21/2022 What Is Your Level Of Caffeine Consumption? Moderate [id number] Information not available 08/21/2022 In The 14 Days Before Symptom Onset, Have You Had Close Contact With A Laboratory-confir med COVID-19 While That Case Was Ill? No [email or web address] Information not available 09/05/2022 In The 14 Days Before Symptom Onset, Have You Had Close Contact With A Person Who Is Under Investigation For COVID-19 While That Person Was Ill? No [email or web address] Information not available 09/05/2022 Are You Currently Employed? Yes [email or web address] Information not available 09/05/2022 What Type Of Diet Are You Following? 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 No [email or web address] Information no t available 09/05/2022 Are There Any Guns Present In Your Home? No [email or web address] Information not available 09/05/2022 Do You Use Insect Repellent Routinely? No [email or web address] Information not available 09/05/2022 Do You Have A Medical Power Of Hand Tier? No [email or web address] Information not available 09/05/2022 What Is Your Relationship Status? [id number] Information not available 08/21/2022 Do You Use Your Seat Belt Or Car Seat Routinely? Yes [email or web address] Information not available 09/05/2022 Do You Have Smoke And Carbon Monoxide Detectors In Your Home? Yes [email or web address] Information not available 09/05/2022 At What Age Did You Start Smoking Tobacco? 14 Information not available 09/05/2022 Do You Use Any Illicit Or Recreational Drugs? No [email or web address] Information not available 09/05/2022 Do You Use Sunscreen Routinely? No [email or web address] Information not available 09/05/2022 Have You Recently Traveled Abroad? No [email or web address] Information not available 09/05/2022 Do You Have Any Dietary Restrictions? No [email or web address] Information not available 09/05/2022 Sex: Unknown Functional Status Question Answer Note LastModified by Organizat ion Details LastModified Time What is your exercise level? Occasional [id number] Information not available 08/21/2022 Mental Status None recorded. Family History Relationship Description Onset Age of this Age Resolved Age Notes LastModified by Organization Details LastModified Time Father Diabetes mellitus [id number] Not available 08/21/2022 08:06:37 Father Malignant tumor of lung [email or web address] Not available 09/05 08:56:18 Brother Diabetes mellitus [id number] Not available 08/21/2022 08:06:37 Maternal Grandmother Myocardial infarction [id number] Not available 08/21/2022 08:06:37 Paternal Grandfather Malignant tumor of colon [email or web address] Not available 09/05 08:56:18 Medical History Condition Response OBESITY Y SLEEP DISORDER Y HEADACHES/MIGRAINES Y Gynecological History Statement/Question Response Date of Last Pap 06/23/2016 Date of Last Mammogram 07/24/2218 Current Control Method Hysterectom y Date of Last Colonoscopy 06/23/2009 Sexually Active? Y Obstetrics History GPAL:G 0 P 0 0 0 0 Immunizations Vaccine Type Date Status Note Provider Nam e and Address Organization Details Recorded Time COVID-19, mRNA, LNP-S, PF, 100 mcg/0.5mL dose or 50 mcg/0.25mL dose 1 completed Not Available [facility] 08/21/2022 08:12:21 tetanus toxoid, unspecified formulation 5 completed Not Available [facility] 08/21/2022 08:12:21 MMR 0 completed Not Available [facility] 08/21/2022 08:12:21 DTaP, unspecified formulation 0 completed Not Available [facility] 08/21/2022 08:12:21 Past Encounters Encounter ID Performer Location Encounter Start Date Encounter Closed Date Diagnosis/Indication Diagnosis SNOMED-CT Code Diagnosis ICD10 Code Diagnosis Note [id number] [facility] [place] [address] [place] [address] 08/07/2021 00:00:00 08/20/2021 07:55:03 [id number] GREG Appiah [facility] [place] [address] [place] [address] 09/05/2022 08:56:13 09/05/2022 09:31:40 Adult health examination 519536143 Z00.01 annual wellness completed Benign ess ential hypertension 2962116 I10 rx for chlorthali done 25mg daily. Swelling 60309583 R60.9 as above, diuretic will help Insomnia 080107754 G47.0 0 stable Migraine 35745879 G43.90 9 stable on triptan PRN Weight gain 2130412 R63. 5 screening TFTs and insulin and wegovy RX Long-term drug therapy 765988004 Z79.899 all labs are due Cholesterol screening 27 0613360 Z13.220 Diabetes m ellitus screening 324221813 Z13.1 Multiple joint pain 3567 8005 M25.50 check CRP and RF panel Screening mammography 24 171574 Z12.31 mammogram due Vitamin D deficiency 347 09284 E55.9 Rx for weekly high dose Rx Menopausal symptom 81419 002 N95.1 Rx for wellbutrin XL 150mg daily Mixed anxi ety and depressive disorder 723795135 F41.8 Rx for prn alprazolam [id number] GREG Appiah [facility] [place] [address] [place] [address] 10/11/2022 15:20:57 10/11/2022 16:23:11 Mixed anxiety and depressive disorder 183176424 F41.8 prn alprazolam , boost to Wellbutrin XL 300mg daily Body mass index 40+ - severely obese 539742687 Z68.41 2 month of wegovy 0.25mg given. Health Concerns Section Related Observation LastModified by Organization Detai ls LastModified Time None Recorded Concern Status LastModified by Organization Details LastModified Time None Recorded Advance Directives Directive N: Payers Encounter Date Sequence Insurance Name Policy Number Policy Mendez Covered Member ID Mendez Member ID Guarantor Name 09/05/2022 1 [employer] (POS) [id number] Javi Arreguin [id number] Isidra De La Rosa 10/11/2022 1 [employer] (POS) [id number] Javi Arreguin [id number] Isidra De La Rosa Notes Date Note Type Note Provider Name and Address Organization Details Recorded Time 08/07/2021 text/html Anxiety/Depressi onRep orted bypatient.Quality:inc reased anxiety; doesnt matter what time of day. Severity:denies suicidal ideations; able to maintain relationships;interfe rence with household activities;interferen ce with sleep Duration:symptoms lasting over 2 weeks Onset/Timing:still present Context:major life stressors Modifying Factors:medications as directed Associated Symptoms:denies homicidal ideations; no significant weight gain; no significant weight loss; no visual/auditory hallucinations; no delusions; no shortness of breath; no crying spells; no panic; no isolation; sleeping well; appetite good; energy good; no apathy; maintaining functionality;anxiety InsomniaReported bypatient.Severity:wo rsening Duration:intermittent Context:using medications for sleep Modifying Factors:prescription medication Associated Symptoms:no snoring; no known sleep apnea; no dyspnea; no urinary frequency; legs do not feel restless;anxiety;depr ession;generalized pain(arthritis pain in back) Not Available [facility] 08/20/2021 07:55:03 09/05/2022 text/html Anxiety/Depressi onRep orted bypatient.Quality:ferrer snt matter time of day Severity:denies suicidal ideations; able to maintain relationships;interfe rence with sleep;interference with work Duration:symptoms lasting over 2 weeks Onset/Timing:still present Context:no major life stressors Modifying Factors:rx meds Associated Symptoms:denies homicidal ideations; no significant weight gain; no significant weight loss; no visual/auditory hallucinations; no delusions; no shortness of breathNotes:Needs rf on xanax.Generic HPI TemplateReported bypatient.Notes:Pt states her arthritis is getting worse everywhere.Hypertensi onReported bypatient.Duration:peacock s noted for years Onset/Timing:better Alleviating Factors:medication Associated Symptoms:no fatigue; no decline in exercise capacity; no snoring;shortness of breath;palpitations Wellness GREG Appiah [address] [facility], [place] [address], [place], [address], Interview [employer] 09/20/2022 15:51:16 10/11/2022 text/html Anxiety/Depressi onRep orted bypatient.Quality:ferrer snt matter time of day Severity:denies suicidal ideations; able to maintain relationships;interfe rence with sleep;interference with work Duration:symptoms lasting over 2 weeks Onset/Timing:still present Context:major life stressors Modifying Factors:rx meds Associated Symptoms:denies homicidal ideations; no significant weight gain; no significant weight loss; no visual/auditory hallucinations; no delusions; no shortness of breath;anxiety;depres adiel;anxiety with excessive sweating;flushingNote s:Pt is here for f/u after starting wellbutrin and xanax. States she is unsure if its helping a lot maybe just a little. Wellness GREG Appiah [address] [facility], [place] [address], [place], [address], Interview [employer] 10/17/2022 16:52:53 OBGyn Episode No OBEpisode recorded.
--- OUTSIDE RECORDS SUMMARY | 2024-07-15 20:07 | XMS_ITS | Clinical Summary ---
Author Organization [facility] Address [address] [place] [address]. 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 Gender Identity Not on file Sexual Orientation Not on file Plan of Treatment Health Maintenance Due Date Last Done Comments Cervical Cancer Screening Pa p Smear (Age 30 to 64) Every 3 Years 1965 Colorectal Cancer Screening Colonoscopy (10 Years) 1965 Annual Physical 1968 Hepatitis C 10/13/1983 Hepatitis B Vaccines (1 of 3 - 19+ 3-dose series) 1984 Cervical Cancer Screening Pa p with HPV Testing (Age 30 to 64) Every 5 Years 10/13/1995 Cervical Cancer Screening wi th HPV 10/13/1995 Mammogram Screening 2005 Zoster Vaccines (1 of 2) 10/13/2015 COVID-19 Vaccine ( - 2023-2 5 season) 2024 09/02/2020, 08/05/2020 Influenza Adult (#1) 2024 DTaP, Tdap and Td Vaccines ( 3 - Tdap) 06/23/2024 06/23/2014, 05/13/2000 Meningococcal Vaccine Aged Out No teresa vasile eligible based on patient's age to complete this topic Pneumococcal Vaccine: Pediatrics (0 to 5 Years) and At-Risk Patients (6 to 64 Years) Aged Out No longer eligible b ased on patient's age to complete this topic RSV Immunizations Under 20 Months Aged Out No longer eligible b ased on patient's age to complete this topic Care Teams Afterschool Babysitter Relationship Specialty Start Date End Date None, Provider, PCP - General 06/27/21
--- OUTSIDE RECORDS SUMMARY | 2024-07-15 20:09 | XMS_ITS | Referral Summary ---
Author Organization [facility] Address [facility] [place] [address] Care Team Providers Care Urban Renewal Manager Name Role Phone Yumiko Vogt Primary Care Pr ovider Allergies No known active allergies Medications cyclobenzaprine (FLEXERIL) 10 mg tablet Take 1 tablet by mouth 2 (two) times a day As needed Active ALPRAZolam (XANAX) 0.25 mg tablet Take 1-2 tablets by mouth nightly Active celecoxib (CeleBREX) 200 mg capsuleIndications :Osteoarthritis,Po stoperative Acute Pain Take 1 tablet twice daily after surgery until prescription is finished. You should already have this prescription at home. 10 capsule 06/18/20 19 Active apixaban (ELIQUIS) 2.5 mg tabletIndications: VTE Prophylaxis Following Ortho Surgery Take 1 tablet (2.5 mg total) by mouth every 12 (twelve) hours 60 tablet 06/18/20 19 Active senna-docusate (PERICOLACE) 8.6-50 mgIndications:cons tipation Take 2 tablets by mouth 2 (two) times a day May increase to 4 tablets twice daily if needed. HOLD medication for diarrhea. 80 tablet 1 06/18/20 19 Active oxyCODONE-acetamin ophen (PERCOCET) 5-325 mg per tabletIndications: Pain Take 1-2 tablets by mouth every 4 (four) hours as needed for pain 56 tablet 07/15/19 20 Active rizatriptan BOOK MENDER (MAXALT-BOOK MENDER) 10 mg disintegrating tablet 07/06/19 20 Active Active Problems Problem Noted Date Diagnosed Date Primary osteoarthritis of right knee 06/02/2019 Overview (06/02/2019): Added automatically from request for surgery [id number] Alopecia 05/13/2019 Anxiety 05/13/2019 Current tear of medial cartilage or meniscus of knee 05/13/2019 Depressive disorder 05/13/2019 Hemorrhoids 05/13/2019 Knee pain 05/13/2019 Low back pain 05/13/2019 Migraine 05/13/2019 Orthopedic aftercare 05/13/2019 Immunizations Name Administration Dates Next Due DTaP, Unspecified 05/13/2000 MMR 05/13/2000 Tetanus Toxoid, Unspecified 06/23/2014 Social History Tobacco Use Types Packs/Day Years Used Date Smoking Tobacco: Former Cigarettes 0.5 36.9 1 980 - 05/23/2016 Smokeless Tobacco: Never Alcohol Use Standard Drinks/Week Comments Not Currently 0 (1 standard drink = 0.6 oz pur e alcohol) Comments No Sex and Gender Information Value Date Recorded Sex Assigned at Not on file Legal Sex Female 9:28 AM CDT Gender Identity Not on file Sexual Orientation Not on file Last Filed Vital Signs Vital Sign Reading Time Taken Comments Blood Pressure 142/72 06/18/2019 11:13 AM SLD TEACHER Pulse 95 06/18/2019 11:13 AM SLD TEACHER Temperature 36.7 ??C (98.1 ??F) 06/18/2019 11:[address] Respiratory Rate 22 06/18/2019 11:13 AM SLD TEACHER Oxygen Saturation 93% 06/18/2019 11:13 AM SLD TEACHER Inhaled Oxygen Concentration - - Weight 117 kg (258 lb) 06/18/2019 5:40 AM SLD TEACHER Height 167.6 cm (5' 6 ) 06/18/2019 5:40 AM SLD TEACHER Body Mass Index 41.64 06/18/2019 5:40 AM SLD TEACHER Plan of Treatment Not on file Medical Devices Implanted Type Area Grocery Checker Device Identifier Shelf Expiration Date Model / Serial / Lot [employer] 6191-1-010 Simplex P Radiopaque Full Dose Cement Bone Sterile - S0 - [id number] Implanted:Qty: 1 on 06/18/2019 by Adriel Oliva MD at [facility] Bone Cement [employer] 05/22/2021 6191-1-010 / 0 / [id number] [employer] [id number] Unicompartmental Fix Bearing Asymmetric Knee Right Medial - S0 - [id number] Implanted:Qty: 1 on 06/18/2019 by Adriel Oliva MD at [facility] Other - see comments [employer] 02/20/2029 [id number] / 0 / [id number] [employer] [id number] Saurabh 9mm Unicompartmental Knee Tibia 5 Insert Articular - S0 - [id number] Implanted:Qty: 1 on 06/18/2019 by Adriel Oliva MD at [facility] Other - see comments [employer] [id number] 04/22/2021 [id number] / 0 / [id number] [employer] [id number] High Flex [id number] Unicompartmental Modular Knee Right Medial Left - S0 - [id number] Implanted:Qty: 1 on 06/18/2019 by Adriel Oliva MD at [facility] Other - see comments [employer] [id number] 05/22/2027 [id number] / 0 / [id number] Insurance O Advance Directives For more information, please contact: [phone] * Full Code (Latest Code Status on File) Date Activated Date Inactivated Comments 06/18/2019 9:42 AM 06/18/2019 6:58 PM Care Teams Urban Renewal Manager Relationship Specialty Start Date End Date Yumiko Vogt PA PCP - General Physician Barrel Repairer 04/13/19
--- OUTSIDE RECORDS SUMMARY | 2024-07-15 20:09 | XMS_ITS | Clinical Summary ---
Author Organization [facility] Address [facility] [place] [address] Care Team Providers Care Snack Bar Attendant Name Role Phone Yumiko Vogt Primary Care [...] pain 56 tablet 07/15/19 20 Active rizatriptan PROCUREMENT BUYER (MAXALT-PROCUREMENT BUYER) 10 mg disintegrating tablet 07/06/19 20 Active Active Problems Problem Noted Date Diagnosed Date Primary osteoarthritis of right knee 06/02/2019 Overview (06/02/2019): Added automatically from request for surgery [id number] Alopecia 05/13/2019 Anxiety 05/13/2019 Current tear of medial cartilage or meniscus of knee 05/13/2019 Depressive disorder 05/13/2019 Hemorrhoids 05/13/2019 Knee pain 05/13/2019 Low back pain 05/13/2019 Migraine 05/13/2019 Orthopedic aftercare 05/13/2019 Immunizations Name Administration Dates Next Due DTaP, Unspecified 05/13/2000 MMR 05/13/2000 Tetanus Toxoid, Unspecified 06/23/2014 Surgical History Surgery Date Site/Laterality Comments KNEE ARTHROSCOPY CHOLECYSTECTOMY HYSTERECTOMY Medical History Medical History Date Comments Anxiety Arthritis Depression Migraines Obesity Motion sickness PONV (postoperative nausea and vomiting) unsure if given medication to prevent n/v with past procedures Family History Medical History Relation Name Comments Diabetes Brother Mental illness Brother Cancer Father Diabetes Father Heart disease Father Arthritis Mother Hypertension Mother Mental illness Mother Anesthesia problems Neg Hx Relation Name Status Comments Brother Father Mother Social History Tobacco Use Types Packs/Day Years [...] on file Sexual Orientation Not on file Obstetrics History Last Filed Vital Signs Vital Sign Reading Time Taken Comments Blood Pressure 142/72 06/18/2019 11:13 AM SUPERVISOR PIPE JOINTS Pulse 95 06/18/2019 11:13 AM SUPERVISOR PIPE JOINTS Temperature 36.7 ??C (98.1 ??F) 06/18/2019 11:[address] Respiratory Rate 22 06/18/2019 11:13 AM SUPERVISOR PIPE JOINTS Oxygen Saturation 93% 06/18/2019 11:13 AM SUPERVISOR PIPE JOINTS Inhaled Oxygen Concentration - - Weight 117 kg (258 lb) 06/18/2019 5:40 AM SUPERVISOR PIPE JOINTS Height 167.6 cm (5' 6 ) 06/18/2019 5:40 AM SUPERVISOR PIPE JOINTS Body Mass Index 41.64 06/18/2019 5:40 AM SUPERVISOR PIPE JOINTS Plan of Treatment Not on file Medical Devices Implanted Type Area Supervisor Pairing And Inspecting Device Identifier Shelf Expiration Date Model / Serial / Lot [employer] 6191-1-010 Simplex P Radiopaque Full Dose Cement Bone Sterile - S0 - [id number] Implanted:Qty: 1 on 06/18/2019 by Adriel Oliva MD at [facility] Bone Cement [employer] 05/22/2021 6191-1-010 / 0 / [id number] [employer] o [id number] Unicompartmental Fix Bearing Asymmetric Knee Right Medial - S0 - [id number] Implanted:Qty: 1 on 06/18/2019 by Adriel Oliva MD at [facility] Other - see comments [employer] 02/20/2029 [id number] / 0 / [id number] [employer] [id number] Saurabh 9mm Unicompartmental Knee Tibia 5 Insert Articular - S0 - [id number] Implanted:Qty: 1 on 06/18/2019 by Adriel Oliva MD at [facility] Other - see comments [employer] [id number] 04/22/2021 [id number] / 0 / [id number] [employer] [id number] High Flex [id number] Unicompartmental Modular Knee Right Medial Left - S0 - [id number] Implanted:Qty: 1 on 06/18/2019 by Adriel Oliva MD at [facility] Other - see comments [employer] [id number] 05/22/2027 [id number] / 0 / [id number] Insurance [employer] [facility] HMO Advance Directives For more information, please contact: [phone] * Full Code (Latest Code Status on File) Date Activated Date Inactivated Comments 06/18/2019 9:42 AM 06/18/2019 6:58 PM Care Teams Snack Bar Attendant Relationship Specialty Start Date End Date Yumiko Vogt PA PCP - General Physician Cannon Crewmember 04/13/19
== END 2024-07-13 16:55 | disposition home or self-care (01) ==
PROVIDERS: PCP Physician Assistant; Visit Provider Physician Assistant
DX: R10.9 Unspecified abdominal pain (principal)
CPT/HCPCS: 74176

== ENCOUNTER 2025-04-04 00:28 | Day surgery (SDC) | payer OTHER, SELFPAY ==
[2025-03-25 11:40] VITALS: BMI 35.6
--- OUTSIDE RECORDS SUMMARY | 2025-04-04 00:31 | XMS_ITS | Clinical Summary ---
Author Organization [facility] Address [facility] [place] [address] Care Team Providers Care Auto Body Man Name Role Phone None, Provider Primary Care Provider Unavaila ble Social History Tobacco Use Types Packs/Day Years Used Date Smoking Tobacco: Never Assessed Comments Unknown Sex and Gender Information Value Date Recorded Sex Assigned at Not on file Legal Sex Female 2:04 PM SPECIAL PROCEDURE TECH Gender Identity Not on file Sexual Orientation Not on file Plan of Treatment Health Maintenance Due Date Last Done Comments Cervical Cancer Screening Pa p Smear (Age 30 to 64) Every 3 Years 1965 Colorectal Cancer Screening Colonoscopy (10 Years) 1965 Annual Physical 1968 Hepatitis C 10/13/1983 Cervical Cancer Screening Pa p with HPV Testing (Age 30 to 64) Every 5 Years 10/13/1995 Cervical Cancer Screening wi th HPV 10/13/1995 Mammogram Screening 2005 Pneumococcal Vaccine: 50+ Years (1 of 1 - PCV) 10/13/2015 Zoster Vaccines (1 of 2) 10/13/2015 DTaP, Tdap and Td Vaccines ( 3 - Tdap) 06/23/2024 06/23/2014, 05/13/2000 COVID-19 Vaccine (3 - 2024-2 6 season) 2025 09/02/2020, 08/05/2020 Influenza Adult (#1) 2025 Meningococcal B Vaccine Aged Out No l onger eligible based on patient's age to complete this topic Meningococcal Vaccine Aged Out No teresa vasile eligible based on patient's age to complete this topic RSV Immunizations Under 20 Months Aged Out No longer eligible b ased on patient's age to complete this topic Care Teams Auto Body Man Relationship Specialty Start Date End Date None, Provider, PCP - General 06/27/21
--- OUTSIDE RECORDS SUMMARY | 2025-04-04 00:31 | XMS_ITS | Clinical Summary ---
Author Organization [facility] Address [facility] [place] [address] Care Team Providers Care Financial Accounting Analyst Name Role Phone Yumiko Vogt Primary Care [...] pain 56 tablet 07/15/19 20 Active rizatriptan POSTMASTER (MAXALT-POSTMASTER) 10 mg disintegrating tablet 07/06/19 20 Active Active Problems Problem Noted Date Diagnosed Date Primary osteoarthritis of right knee 06/02/2019 Overview (06/02/2019): Added automatically from request for surgery [id number] Alopecia 05/13/2019 Anxiety 05/13/2019 Current tear of medial cartilage or meniscus of knee 05/13/2019 Depressive disorder 05/13/2019 Hemorrhoids 05/13/2019 Knee pain 05/13/2019 Low back pain 05/13/2019 Migraine 05/13/2019 Orthopedic aftercare 05/13/2019 Immunizations Immunization Administration Dates Next Due DTaP, Unspecified 05/13/2000 [...] Comments Blood Pressure 142/72 06/18/2019 11:13 AM GEMOLOGIST Pulse 95 06/18/2019 11:13 AM GEMOLOGIST Temperature 36.7 C (98.1 F) 06/18/2019 11:13 AM GEMOLOGIST Respiratory Rate 22 06/18/2019 11:13 AM GEMOLOGIST Oxygen Saturation 93% 06/18/2019 11:13 AM GEMOLOGIST Inhaled Oxygen Concentration - - Weight 117 kg (258 lb) 06/18/2019 5:40 AM GEMOLOGIST Height 167.6 cm (5' 6) 06/18/2019 5:40 AM GEMOLOGIST Body Mass Index 41.64 06/18/2019 5:40 AM GEMOLOGIST Plan of Treatment Not on file Medical Devices Implanted Type Area Financial Controller Device Identifier Shelf Expiration Date Model / Serial / Lot [employer] 6191-1-010 Simplex P Radiopaque Full Dose Cement Bone Sterile - S0 - [id number] Implanted:Qty: 1 on 06/18/2019 by Adriel Oliva MD at [facility] Bone Cement [employer] 05/22/2021 6191-1-010 / 0 / [id number] [employer] [id number] Unicompartmental Fix Bearing Asymmetric Knee Right Medial - S0 - [id number] Implanted:Qty: 1 on 06/18/2019 by Adriel Oliva MD at [facility] Other - see comments [employer] 02/20/2029 [id number] / 0 / [id number] [employer] o [id number] Saurabh 9mm Unicompartmental Knee Tibia 5 Insert Articular - S0 - [id number] Implanted:Qty: 1 on 06/18/2019 by Adriel Oliva MD at [facility] Other - see comments [employer] [id number] 04/22/2021 [id number] / 0 / [id number] [employer] [id number] High Flex [id number] Unicompartmental Modular Knee Right Medial Left - S0 - [id number] Implanted:Qty: 1 on 06/18/2019 by Adriel Oliva MD at [facility] Other - see comments [employer] [id number] 05/22/2027 [id number] / 0 / [id number] Insurance [employer] [facility] HMO Advance Directives For more information, please contact: [phone] * Full Code (Latest Code Status on File) Date Activated Date Inactivated Comments 06/18/2019 9:42 AM 06/18/2019 6:58 PM Care Teams Financial Accounting Analyst Relationship Specialty Start Date End Date Yumiko Vogt PA PCP - General Physician Engine Lathe Set Up Operator 04/13/19
--- OUTSIDE RECORDS SUMMARY | 2025-04-04 00:31 | XMS_ITS | Data Portability ---
Author Organization [place] [employer], Main Office Address [address] [place] [address] Care Team Providers Care Hr Payroll Coordinator Name Role Phone JOSE RAMON PRICE Primary Care Provider [phone] JOSE RAMON PRICE Referring Provider [phone] Assessment Encounter Date Assessment Date Assessment LastModified [...] TSH + free T4, serum 2022 023 [employer] [facility], [address], [place], [address], 3 16:29:19 T3, free, serum or plasma 2022 023 [employer] [facility], [address], [place], [address], 3 16:29:22 insulin, serum 2022 023 [employer] [facility], [address], [place], [address], 3 16:29:27 lipid panel, serum 2022 023 [employer] [facility], [address], [place], [address], 3 16:29:20 CBC w/ auto diff 2022 023 [employer] [facility], [address], [place], [address], 3 16:29:23 CMP, serum or plasma 2022 023 [employer] [facility], [address], [place], [address], 3 16:29:21 urinalysis complete, reflex culture 2022 023 [employer] [facility], [address], [place], [address], 3 16:29:24 C-reactive protein, quantitativ e, serum or plasma 2022 023 [employer] [facility], [address], [place], [address], 3 16:29:26 rf (rheumatoid factor), serum 2022 023 [employer] [facility], [address], [place], [address], 3 16:29:25 HbA1c (hemoglobin A1c), blood 2022 023 [employer] [facility], [address], [place], [address], 3 16:29:22 Referral None recorded. Procedures None recorded. Surgeries None recorded. Imaging MAMMO, screening, digital, bilateral 2022 023 [facility], [address], [address], [place], [address], 3 05:02:16 Medication Orders Wegovy 0.25 mg/0.5 mL subcutaneou s pen injector 2022 023 [facility], [address] [place], [address], 3 09:26:25 alprazolam 0.25 mg tablet 2022 023 [facility], [address] [place], [address], 3 09:35:31 Wellbutrin XL 150 mg 24 hr tablet, extended release 2022 023 [email or web address] [address] [place], [address], 3 16:00:53 ergocalcife rol (vitamin D2) 1,250 mcg (50,000 unit) capsule 2022 023 [facility], [address] [place], [address], 3 09:26:26 chlorthalid one 25 mg tablet 2022 023 [facility], [address] [place], [address], 3 09:26:27 Patient TargetsNo targets recorded. Patient InstructionsNo instructions recorded. Reason for Referral None Reported. Results Created Date Observation Date Name Description Value Unit Range Abnormal Flag Note LastModifiedBy Organization Detail LastModifiedTime 09/07/1909/07/2022 TSH+F REE T4 TSH 3.37 mIU/L 0.40-4 .50 normal Not Available [employer] [facility] [address] [place], [address], 09/07/2022 16:29:19 09/07/1909/07/2022 TSH+F REE T4 T4, free 1.3 NG/dL 0.8-1. 8 normal Not Available [address] [address] [place], [address], 09/07/2022 16:29:19 09/07/19 23 09/07/2022 LIPID PANEL WITH RATIO S cholesterol, total 173 mg/dL <200 normal Not Available [address] [address] [place], [address], 09/07/2022 16:29:20 09/07/19 23 09/07/2022 LIPID PANEL WITH RATIO S HDL cholesterol 58 mg/dL > or = 50 normal Not Available [address], [address], 09/07/2022 16:29:20 09/07/19 23 09/07/2022 LIPID PANEL WITH RATIO S triglyceride s 96 mg/dL <150 normal Not Available [address] [address] [place], [address], 09/07/2022 16:29:20 09/07/19 23 09/07/2022 LIPID PANEL WITH RATIO S LDL-choleste rol 96 mg/dL _(ferny c) normal Refer ence range : <100 Chuy able range <100 mg/dL for prima ry preve ntion ; <70 mg/dL for patie nts with CHD or diabe tic patie nts with > or = 2 CHD risk facto rs. LDL-C is now calcu lated using the Monica crum-Hop kins calcu raleigh n, which is a valid ated novel metho d provi narda griffithte r accur acy than the Fried della equat ion in the estim ation of LDL-C . Monica crum SS et al. ONESIMO. 2013; 310(1 9): 2061- 2068 (http ://ed ucati on.Qu trangDi 3D Biomatrixs. com/f aq/FA Q164) Not Available [facility] [address] [address] [place], [address], 09/07/2022 16:29:20 09/07/19 23 09/07/2022 LIPID PANEL WITH RATIO S chol/HDLC ratio 3.0 (calc ) <5.0 normal Not Available [address], [address], 09/07/2022 16:29:20 09/07/19 23 09/07/2022 LIPID PANEL WITH RATIO S LDL/HDL ratio 1.7 (calc ) Below avera ge Risk: <2.34 [place] ge Risk: 2.35- 4.12 Moder ate Risk: 4.13- 5.56 High Risk: >5.57 Not Available [address] [address] [place], [address], 09/07/2022 16:29:20 09/07/19 23 09/07/2022 LIPID PANEL WITH RATIO S non HDL cholesterol 115 mg/dL _(ferny c) <130 normal For patie nts with diabe bryanna plus 1 major ASCVD risk facto r, treat ing to a non-H DL-C goal of <100 mg/dL (LDL- C of <70 mg/dL ) is consi gerardod a gerald peuti c optio n. Not Available [address], [address], 09/07/2022 16:29:20 09/07/19 23 09/07/2022 COMPR EHENS SCOTT METAB OLIC PANEL glucose 105 mg/dL 65-139 normal Non-f astin g refer ence inter farrah Not Available [address] [address] [place], [address], 09/07/2022 16:29:21 09/07/19 23 09/07/2022 COMPR EHENS SCOTT METAB OLIC PANEL urea nitrogen (BUN) 16 mg/dL 7-25 normal Not Available [address] [address] [place], [address], 09/07/2022 16:29:21 09/07/19 23 09/07/2022 COMPR EHENS SCOTT METAB OLIC PANEL creatinine 0.94 mg/dL 0.50-1 .03 normal Not Available [address], [address], 09/07/2022 16:29:21 09/07/19 23 09/07/2022 COMPR EHENS SCOTT METAB OLIC PANEL eGFR 71 mL/mi n/1.7 3m2 > or = 60 normal The eGFR is based on the CKD-E PI 2020 equat ion. To calcu late the new eGFR from a previ ous Creat inine or Cysta tin C resul t, go to https ://adelia w.ayla gaona.o sai/kelly kaba s/ kdoqi /gfr% 5Fcal culat or Not Available [address], [address], 09/07/2022 16:29:21 09/07/19 23 09/07/2022 COMPR EHENS SCOTT METAB OLIC PANEL BUN/creatini ne ratio NOT APPLIC ABLE (calc ) 6-22 Not Available [address], [address], 09/07/2022 16:29:21 09/07/19 23 09/07/2022 COMPR EHENS SCOTT METAB OLIC PANEL sodium 141 mmol/ L 135-14 6 normal Not Available [address], [address], 09/07/2022 16:29:21 09/07/19 23 09/07/2022 COMPR EHENS SCOTT METAB OLIC PANEL potassium 4.3 mmol/ L 3.5-5. 3 normal Not Available [address], [address], 09/07/2022 16:29:21 09/07/19 23 09/07/2022 COMPR EHENS SCOTT METAB OLIC PANEL chloride 107 mmol/ L 98-110 normal Not Available [address], [address], 09/07/2022 16:29:21 09/07/19 23 09/07/2022 COMPR EHENS SCOTT METAB OLIC PANEL carbon dioxide 26 mmol/ L 20-32 normal Not Available [address], [address], 09/07/2022 16:29:21 09/07/19 23 09/07/2022 COMPR EHENS SCOTT METAB OLIC PANEL calcium 9.6 mg/dL 8.6-10 .4 normal Not Available [address], [address], 09/07/2022 16:29:21 09/07/19 23 09/07/2022 COMPR EHENS SCOTT METAB OLIC PANEL protein, total 6.6 g/dL 6.1-8. 1 normal Not Available [address], [address], 09/07/2022 16:29:21 09/07/19 23 09/07/2022 COMPR EHENS SCOTT METAB OLIC PANEL albumin 4.4 g/dL 3.6-5. 1 normal Not Available [address], [address], 09/07/2022 16:29:21 09/07/19 23 09/07/2022 COMPR EHENS SCOTT METAB OLIC PANEL globulin 2.2 g/dL_ (calc ) 1.9-3. 7 normal Not Available [address], [address], 09/07/2022 16:29:21 09/07/19 23 09/07/2022 COMPR EHENS SCOTT METAB OLIC PANEL albumin/glob ulin ratio 2.0 (calc ) 1.0-2. 5 normal Not Available [address], [address], 09/07/2022 16:29:21 09/07/19 23 09/07/2022 COMPR EHENS SCOTT METAB OLIC PANEL bilirubin, total 0.6 mg/dL 0.2-1. 2 normal Not Available [address] [address] [place], [address], 09/07/2022 16:29:21 09/07/19 23 09/07/2022 COMPR EHENS SCOTT METAB OLIC PANEL alkaline phosphatase 49 U/L 37-153 normal Not Available [facility] [address] [address] [place], [address], 09/07/2022 16:29:21 09/07/19 23 09/07/2022 COMPR EHENS SCOTT METAB OLIC PANEL AST 12 U/L 10-35 normal Not Available [address] [address] [place], [address], 09/07/2022 16:29:21 09/07/19 23 09/07/2022 COMPR EHENS SCOTT METAB OLIC PANEL ALT 15 U/L 6-29 normal Not Available [address] [address] [place], [address], 09/07/2022 16:29:21 09/07/19 23 09/07/2022 HEMOG LOBIN A1C hemoglobin A1C 5.5 %_of_ total _HGB <5.7 normal For the purpo se of abraham beulah for the prese nce of diabe [...] Care in Diabe bryanna(A DA). Not Available [address] [address] [place], [address], 09/07/2022 16:29:22 09/07/19 23 09/07/2022 T3, FREE T3, free 3.1 pg/mL 2.3-4. 2 normal Not Available [facility] [address] [address] [place], [address], 09/07/2022 16:29:22 09/07/19 23 09/07/2022 CBC (INCL UDES DIFF/ PLT) white blood cell count 4.9 thous and/u L 3.8-10 .8 normal Not Available [facility] [address], [address], 09/07/2022 16:29:23 09/07/19 23 09/07/2022 CBC (INCL UDES DIFF/ PLT) red blood cell count 4.30 debora on/uL 3.80-5 .10 normal Not Available [address], [address], 09/07/2022 16:29:23 09/07/19 23 09/07/2022 CBC (INCL UDES DIFF/ PLT) hemoglobin 13.4 g/dL 11.7-1 5.5 normal Not Available [facility] [address], [address], 09/07/2022 16:29:23 09/07/19 23 09/07/2022 CBC (INCL UDES DIFF/ PLT) hematocrit 38.1 % 35.0-4 5.0 normal Not Available [address], [address], 09/07/2022 16:29:23 09/07/19 23 09/07/2022 CBC (INCL UDES DIFF/ PLT) MCV 88.6 fL 80.0-1 00.0 normal Not Available [address], [address], 09/07/2022 16:29:23 09/07/19 23 09/07/2022 CBC (INCL UDES DIFF/ PLT) MCH 31.2 pg 27.0-3 3.0 normal Not Available [address], [address], 09/07/2022 16:29:23 09/07/19 23 09/07/2022 CBC (INCL UDES DIFF/ PLT) MCHC 35.2 g/dL 32.0-3 6.0 normal Not Available [address], [address], 09/07/2022 16:29:23 09/07/19 23 09/07/2022 CBC (INCL UDES DIFF/ PLT) RDW 12.0 % 11.0-1 5.0 normal Not Available [address], [address], 09/07/2022 16:29:23 09/07/19 23 09/07/2022 CBC (INCL UDES DIFF/ PLT) platelet count 308 thous and/u L 140-40 0 normal Not Available [address], [address], 09/07/2022 16:29:23 09/07/19 23 09/07/2022 CBC (INCL UDES DIFF/ PLT) MPV 9.8 fL 7.5-12 .5 normal Not Available [address], [address], 09/07/2022 16:29:23 09/07/19 23 09/07/2022 CBC (INCL UDES DIFF/ PLT) absolute neutrophils 2955 cells /uL 1500-7 800 normal Not Available [address], [address], 09/07/2022 16:29:23 09/07/19 23 09/07/2022 CBC (INCL UDES DIFF/ PLT) absolute lymphocytes 1490 cells /uL 850-39 00 normal Not Available [address], [address], 09/07/2022 16:29:23 09/07/19 23 09/07/2022 CBC (INCL UDES DIFF/ PLT) absolute monocytes 250 cells /uL 200-95 0 normal Not Available [address], [address], 09/07/2022 16:29:23 09/07/19 23 09/07/2022 CBC (INCL UDES DIFF/ PLT) absolute eosinophils 137 cells /uL 15-500 normal Not Available [address], [address], 09/07/2022 16:29:23 09/07/19 23 09/07/2022 CBC (INCL UDES DIFF/ PLT) absolute basophils 69 cells /uL 0-200 normal Not Available [address], [address], 09/07/2022 16:29:23 09/07/19 23 09/07/2022 CBC (INCL UDES DIFF/ PLT) neutrophils 60.3 % normal Not Available [address], [address], 09/07/2022 16:29:23 09/07/19 23 09/07/2022 CBC (INCL UDES DIFF/ PLT) lymphocytes 30.4 % normal Not Available [address], [address], 09/07/2022 16:29:23 09/07/19 23 09/07/2022 CBC (INCL UDES DIFF/ PLT) monocytes 5.1 % normal Not Available [address], [address], 09/07/2022 16:29:23 09/07/19 23 09/07/2022 CBC (INCL UDES DIFF/ PLT) eosinophils 2.8 % normal Not Available [address], [address], 09/07/2022 16:29:23 09/07/19 23 09/07/2022 CBC (INCL UDES DIFF/ PLT) basophils 1.4 % normal Not Available [address], [address], 09/07/2022 16:29:23 09/07/19 23 09/07/2022 URINA LYSIS , COMPL ETE W/REF EMRE TO CULTU RE color YELLOW yellow normal Not Available [address], [address], 09/07/2022 16:29:24 09/07/19 23 09/07/2022 URINA LYSIS , COMPL ETE W/REF EMRE TO CULTU RE appearance CLEAR clear normal Not Available [address], [address], 09/07/2022 16:29:24 09/07/19 23 09/07/2022 URINA LYSIS , COMPL ETE W/REF EMRE TO CULTU RE specific gravity 1.013 1.001- 1.035 normal Not Available [address], [address], 09/07/2022 16:29:24 09/07/19 23 09/07/2022 URINA LYSIS , COMPL ETE W/REF EMRE TO CULTU RE pH 7.0 5.0-8. 0 normal Not Available [address], [address], 09/07/2022 16:29:24 09/07/19 23 09/07/2022 URINA LYSIS , COMPL ETE W/REF EMRE TO CULTU RE glucose NEGATI VE negati ve normal Not Available [address] [address] [place], [address], 09/07/2022 16:29:24 09/07/19 23 09/07/2022 URINA LYSIS , COMPL ETE W/REF EMRE TO CULTU RE bilirubin NEGATI VE negati ve normal Not Available [address] [address] [place], [address], 09/07/2022 16:29:24 09/07/19 23 09/07/2022 URINA LYSIS , COMPL ETE W/REF EMRE TO CULTU RE ketones NEGATI VE negati ve normal Not Available [address] [place], [address], 09/07/2022 16:29:24 09/07/19 23 09/07/2022 URINA LYSIS , COMPL ETE W/REF EMRE TO CULTU RE occult blood NEGATI VE negati ve normal Not Available [address] [address] [address] , [place], [address], 09/07/2022 16:29:24 09/07/19 23 09/07/2022 URINA LYSIS , COMPL ETE W/REF EMRE TO CULTU RE protein NEGATI VE negati ve normal Not Available [address] [address] [place], [address], 09/07/2022 16:29:24 09/07/19 23 09/07/2022 URINA LYSIS , COMPL ETE W/REF EMRE TO CULTU RE nitrite NEGATI VE negati ve normal Not Available [facility] [address] [address] [place], [address], 09/07/2022 16:29:24 09/07/19 23 09/07/2022 URINA LYSIS , COMPL ETE W/REF EMRE TO CULTU RE leukocyte esterase NEGATI VE negati ve normal Not Available [facility] [address] [place], [address], 09/07/2022 16:29:24 09/07/19 23 09/07/2022 URINA LYSIS , COMPL ETE W/REF EMRE TO CULTU RE WBC NONE SEEN /hpf < or = 5 normal Not Available [address], [address], 09/07/2022 16:29:24 09/07/19 23 09/07/2022 URINA LYSIS , COMPL ETE W/REF EMRE TO CULTU RE RBC NONE SEEN /hpf < or = 2 normal Not Available [address], [address], 09/07/2022 16:29:24 09/07/19 23 09/07/2022 URINA LYSIS , COMPL ETE W/REF EMRE TO CULTU RE squamous epithelial cells 0-5 /hpf < or = 5 Not Available [address], [address], 09/07/2022 16:29:24 09/07/19 23 09/07/2022 URINA LYSIS , COMPL ETE W/REF EMRE TO CULTU RE bacteria NONE SEEN /hpf none seen normal Not Available [address], [address], 09/07/2022 16:29:24 09/07/19 23 09/07/2022 URINA LYSIS , COMPL ETE W/REF EMRE TO CULTU RE hyaline cast NONE SEEN /lpf none seen normal Not Available [address], [address], 09/07/2022 16:29:24 09/07/19 23 09/07/2022 REFLE XIVE URINE CULTU RE reflexive urine culture NO CULTU RE INDIC ATED Not Available [address], [address], 09/07/2022 16:29:25 09/07/19 23 09/07/2022 RHEUM ATOID FACTO R rheumatoid factor <14 IU/mL <14 normal Not Available Employee Benefit Plans [facility] [address] [place], [address], 09/07/2022 16:29:25 09/07/19 23 09/07/2022 C-SAMEER CTIVE PROTE IN C-reactive protein 12.3 mg/L <8.0 high Not Available [facility] [address] [place], [address], 09/07/2022 16:29:26 09/07/19 23 09/07/2022 INSUL IN insulin 8.3 uIU/m L normal Refer ence Range < or = 18.4 Risk: Optim al < or = 18.4 Moder ate NA High >18.4 Adult cardi ovasc ular event risk categ ory cut point s (opti mal, moder ate, high) are based on Insul in Refer ence Inter farrah studi es perfo rmed at [facility] Diagn [facility] s in 2021. Not Available [facility] [address] [place], [address], 09/07/2022 16:29:26 Result Notes None recorded. Problems Name Problem SNOMED Code Status Onset Date Resolution Date Notes Provider Name and Address Organization Details Recorded Time Infection of skin 806699651 Completed Not Available [facility] 3 08:09:22 Plantar fasciitis 648327544 Completed Not Available [facility] 3 08:09:23 Abdominal pain 58535632 Completed Not Available [facility] 3 08:09:23 Low back pain 205704778 Active Not Available [facility] 3 08:09:23 Cyst of skin 378716334 Completed Not Available [facility] 3 08:09:23 Right lower quadrant pain 563827277 Completed Not Available [facility] 3 08:09:23 Current tear of medial cartilage AND/OR meniscus of knee Active Not Available [facility] 3 08:09:23 Knee pain Active Not Available [facility] 3 08:09:23 Acute otitis media 3699249 Completed Not Available [facility] 3 08:09:23 Depressive disorder 13929842 Active Not Available [facility] 3 08:09:23 Migraine 03139483 Active Not Available [facility] 3 08:09:24 Wound 120174983 Completed Not Available [facility] 3 08:09:24 Epidermoid cyst of skin 209694795 Completed Not Available [facility] 3 08:09:24 Nausea 152740970 Completed Not Available [facility] 3 08:09:24 Anxiety 56617701 Active Not Available [facility] 3 08:09:24 Alopecia 16556748 Active Not Available [facility] 3 08:09:24 Pain of joint 53497011 Completed Not Available [facility] 3 08:09:24 Urinary tract infectious disease 26611978 Completed Not Available [facility] 3 08:09:24 Hemorrhoid s 47050384 Active Not Available [facility] 3 08:09:24 Cholelithi asis with obstructio n 67717273 Completed Not Available [facility] 3 08:09:25 Abnormal vision 4379735 Completed Not Available [facility] 3 08:09:25 Fatigue 68831761 Completed Not Available [facility] 3 08:09:25 Influenza- like illness 75925221 Completed Not Available [facility] 3 08:09:25 Insomnia 678228359 Active 2018 Not Available [facility] 3 08:09:23 Renewal of prescripti on Active 2021 Not Available [facility] 3 08:09:22 Benign essential hypertensi on 6106435 Active 2021 STANTON Giron, [place] - S MD [employer] [facility] 3 11:23:59 Diabetes mellitus screening Active 2021 Not Available [facility] 3 08:09:22 Screening mammograph y Active 2021 Not Available [facility] 3 08:09:23 Long-term drug therapy Active 2021 Not Available [facility] 3 08:09:23 Adult health examinatio n Active 2021 Not Available [facility] 3 08:09:23 Body mass index 40+ - severely obese 981725213 Active 2021 Not Available [facility] 3 08:09:24 Swelling 39154904 Active 2021 Not Available [facility] 3 08:09:24 Weight gain 0157569 Active 2022 GREG Appiah [address], [address], [place], [address] , [employer] [facility] 3 09:21:53 Pain of multiple joints 02798244 Active 2022 GREG Appiah [address], [address], [place], [address] , [employer] [facility] 3 09:22:09 Vitamin D deficiency 16190615 Active 2022 GREG Appiah [address], [address], [place], [address] , [employer] [facility] 3 09:24:29 Menopausal symptom 43109214 Active 2022 GREG Appiah [address], [address], [place], [address] , [employer] [facility] 3 09:25:55 Mixed anxiety and depressive disorder 544205175 Active 2022 GREG Appiah [address], [address], [place], [address] , [employer] [facility] 3 09:34:51 Onychomyco sis of toenails 415684592 Active 2022 GREG Appiah [address], [address], [place], [address] , [email or web address] [facility] 3 16:59:20 COVID-19 501486295 Active 2022 GREG Appiah [address] [facility], [address], [place], [address] , [place] [employer] [facility] 11:05:51 Problem Notes None recorded. Procedures Surgical History Date Name Laterality Status Provider Name and Address Organization Details Recorded Time 06/23/19 10 Date of Last Colonoscopy completed Not Available [facility] 08/21/2022 08:06:35 Partial hysterectomy completed Not Available [facility] 08/21/2022 08:06:37 repair of meniscus completed Not Available [facility] 08/21/2022 08:06:37 Cholecystectomy completed Not Available [facility] 08/21/2022 08:06:37 Imaging Results None recorded. Procedure [...] administ ered by the provider 08/06 completed ND: [id number] Not Available Not Available Not [...] administ ered by the provider 08/06 completed [facility]: [id number] 76-17 Not Available Not Available [...] Respiratory rate Body temperature Body weight Systolic And Diastolic Provider Name and Address Organization Details Last Updated DateTime 2 42.9 kg/m2 167.64 cm 98 % 98 % 79 /min 16 /min 97.8 [degF] 806462. 13 g 148/88 mm[Hg] Not Available [facility] 3 08:06:50 Date Recorded Body temperature Body height Body mass index (BMI) Body weight Respiratory rate Oxygen saturation Oxygen saturation in Arterial blood by Pulse oximetry Heart rate Systolic And Diastolic Provider Name and Address Organization Details Last Updated DateTime 3 98.3 [degF] 167.64 cm 44.7 kg/m2 583907. 09 g 16 /min 98 % 98 % 93 /min 150/90 mm[Hg] STANTON Giron [place] - S [employer] [facility] 3 09:04:57 Date Recorded Body height Body temperature Body mass index (BMI) Body weight Respiratory rate Oxygen saturation Oxygen saturation in Arterial blood by Pulse oximetry Heart rate Systolic And Diastolic Provider Name and Address Organization Details Last Updated DateTime 3 167.64 cm 97.5 [degF] 44.2 kg/m2 821783. 31 g 16 /min 95 % 95 % 94 /min 142/90 mm[Hg] STANTON Giron [employer] 15:27:30 Social History Question Answer Notes LastModified by Organizat ion Details LastModified Time Tobacco Smoking Status Current Some Day Smoker STANTON Giron null, GORDO JACKSON [email or web address] [facility] 09/05/2022 08:56:19 Do You Have An Advance Directive? No [id number] Information not available 08/21/2022 What Is Your Level Of Caffeine Consumption? Moderate [id number] Information not available 08/21/2022 In The 14 Days Before Symptom Onset, Have You Had Close Contact With A Laboratory-confirm ed COVID-19 While That Case Was Ill? No Information n ot available 09/05/2022 In The 14 Days Before Symptom Onset, Have You Had Close Contact With A Person Who Is Under Investigation For COVID-19 While That Person Was Ill? No [email or web address] Information not available 09/05/2022 What Type Of Diet Are You Following? REGULAR [id number] Information not available 08/21/2022 Have There Been Any Changes To Your Family Or Social Situation? No [email or web address] Information no t available 09/05/2022 Are There Any Guns Present In Your Home? No [email or web address] Information not available 09/05/2022 Do You Use Insect Repellent Routinely? No [email or web address] Information not available 09/05/2022 Do You Have A Medical Power Of Health Program Analyst? No [email or web address] Information not available 09/05/2022 What Is Your Relationship Status? [id number] Information not available 08/21/2022 Do You Use Your Seat Belt Or Car Seat Routinely? Yes Information not available 09/05/2022 Do You Have Smoke And Carbon Monoxide Detectors In Your Home? Yes [email or web address] Information not available 09/05/2022 At What Age Did You Start Smoking Tobacco? 14 [email or web address] Information not available 09/05/2022 Do You Use Sunscreen Routinely? No [email or web address] Information not available 09/05/2022 Have You Recently Traveled Abroad? No [email or web address] Information not available 09/05/2022 Do You Have Any Dietary Restrictions? No [email or web address] Information not available 09/05/2022 Sex: Unknown Functional Status Question Answer Note LastModified by Organizat ion Details LastModified Time Do you use any illicit or recreational drugs? No [email or web address] Information not available 09/05/2022 What is your level of alcohol consumption? Occasional [id number] Information not available 08/21/2022 Are you currently employed? Yes [email or web address] Information not available 09/05/2022 What is your occupation? teacher Information not available 09/05/2022 What is your exercise level? Occasional [id number] Information not available 08/21/2022 Mental Status None recorded. Family History Relationship Description Onset Age of this Age Resolved Age Notes LastModified by Organization Details LastModified Time Father Diabetes mellitus [id number] Not available 08/21/2022 08:06:37 Father Malignant neoplasm of lung [email or web address] Not available 09/05 08:56:18 Brother Diabetes mellitus [id number] Not available 08/21/2022 08:06:37 Maternal Grandmother Myocardial infarction [id number] Not available 08/21/2022 08:06:37 Paternal Grandfather Malignant neoplasm of colon [email or web address] Not available 09/05 08:56:18 Medical History Condition [...] 50 mcg/0.25mL dose 1 completed Not Available [facility] 08/21/2022 08:12:21 tetanus toxoid, unspecified formulation 5 completed Not Available [facility] 08/21/2022 08:12:21 MMR 0 completed Not Available [facility] 08/21/2022 08:12:21 DTaP, unspecified formulation 0 completed Not Available [facility] 08/21/2022 08:12:21 Past Encounters Encounter ID Performer Location Encounter Start Date Encounter Closed Date Diagnosis/Indication Diagnosis SNOMED-CT Code Diagnosis ICD10 Code Diagnosis IMO Codes Diagnosis Note [id number] GREG Appiah [facility] [address] [place] [address] 08/07/2021 00:00:00 08/20/2021 07:55:03 [id number] GREG Appiah [facility] [address] [place] [address] 09/05/2022 08:56:13 09/05/2022 09:31:40 Adult health examination 695018917 Z00.01 annual wellness completed Benign ess ential hypertension 6463918 I10 rx for chlorthali done 25mg daily. Swelling 77558908 R60.9 as above, diuretic will help Insomnia 531749276 G47.0 0 stable Migraine 50196558 G43.90 9 stable on triptan PRN Weight gain 3126919 R63. 5 screening TFTs and insulin and wegovy RX Long-term drug therapy 214672633 Z79.899 all labs are due Cholesterol screening 27 7657084 Z13.220 Diabetes m ellitus screening 053902985 Z13.1 Pain of mu ltiple joints 90539281 M25.50 check CRP and RF panel Screening mammography 24 645558 Z12.31 mammogram due Vitamin D deficiency 347 50790 E55.9 Rx for weekly high dose Rx Menopausal symptom 00374 002 N95.1 Rx for wellbutrin XL 150mg daily Mixed anxi ety and depressive disorder 655370718 F41.8 Rx for prn alprazolam [id number] GREG Appiah [facility] [address] [place] [address] 10/11/2022 15:20:57 10/11/2022 16:23:11 Mixed anxiety and depressive disorder 717901944 F41.8 prn alprazolam , boost to Wellbutrin XL 300mg daily Body mass index 40+ - severely obese 338725316 Z68.41 2 month of wegovy 0.25mg given. Health Concerns Section Related Observation LastModified by Organization Detai ls LastModified Time None Recorded Concern Status LastModified by Organization Details LastModified Time None Recorded Advance Directives Directive N: Payers Insurance Date Sequence Insurance Name Policy Number Policy Mendez Covered Member ID Mendez Member ID Guarantor Name 10/18/2022 1 [employer] (POS) [id number] Javi Arreguin [id number] Isidra De La Rosa Notes Date Note Type Note Provider Name and Address Organization Details Recorded Time 3 text/htm l HypertensionReported by PatientHPIFor associated symptoms, patient reportsshortness of breathandpalpitationsbut reportsno fatigue,no decline in exercise capacity, andno snoring. For duration, patient reportshas noted for years. For onset/timing, patient reportsbetter. For alleviating factors, patient reportsmedication. Anxiety/DepressionReported by PatientHPIFor severity, patient reportsinterference with sleepandinterference with workbut reportsdenies suicidal ideationsandable to maintain relationships. For duration, patient reportssymptoms lasting over 2 weeks. For onset/timing, patient reportsstill present. For context, patient reportsno major life stressors. For associated symptoms, patient reportsdenies homicidal ideations,no significant weight gain,no significant weight loss,no visual/auditory hallucinations,no delusions, andno shortness of breath. For quality, (doesnt matter time of day). For modifying factors, (rx meds).Needs rf on xanax. Generic HPI TemplateReported by PatientPt states her arthritis is getting worse everywhere. Wellness G[facility] [address] [facility], [facility] [address], [place], [address], [place] [employer] 09/20/2022 15:51:16 3 text/htm l Anxiety/DepressionReported by PatientHPIFor severity, patient reportsinterference with sleepandinterference with workbut reportsdenies suicidal ideationsandable to maintain relationships. For context, patient reportsmajor life stressors. For associated symptoms, patient reportsanxiety,depression,an xiety with excessive sweating, andflushingbut reportsdenies homicidal ideations,no significant weight gain,no significant weight loss,no visual/auditory hallucinations,no delusions, andno shortness of breath. For duration, patient reportssymptoms lasting over 2 weeks. For onset/timing, patient reportsstill present. For quality, (doesnt matter time of day). For modifying factors, (rx meds).Pt is here for f/u after starting wellbutrin and xanax. States she is unsure if its helping a lot maybe just a little. Wellness GREG [facility] [address] [facility], [facility] [address], [place], [address], [facility] [employer] [facility] 10/17/2022 16:52:53 OBGyn Episode No OBEpisode recorded.
[2025-04-04 08:28] VITALS: BP 152/77; PULSE 75; RESP 18; TEMP 36.8; O2SAT 100; BMI 36.8
[2025-04-04] MEDS: LACTATED RINGERS 1,000 ML 150 ML IV CONT (08:45)
--- NOTE | 2025-04-04 09:17 | WPDANESEPPF ---
Anes - Initial Pre Proc Eval Procedure: Operation Date: 04/04/25 10:00 Proposed Procedures p Screening Colonoscopy - Raúl Perez MD Date/Time: 04/04/25 09:17 Surgeon: Raúl Perez MD Pre Op Diagnosis: Encounter for screening for malignant neoplasm of Patient Data Age: 59 Gender: F Height: 1.68 m Weight: 103.7 kg Last Vital Signs Temp 36.8 C 04/04/25 08:28 Pulse 75 04/04/25 08:28 Resp 18 04/04/25 08:28 BP 152/77 H 04/04/25 08:28 Pulse Ox 100 04/04/25 08:28 O2 Del Method Room Air 04/04/25 08:28 Allergies Allergy/AdvReac Type Severity Reaction Status Date / Time No Known Allergies Allergy Mild Verified 04/04/25 08:33 Home Medications ?Medication ?Instructions ?Recorded ?Confirmed ?Type semaglutide (weight loss) 2.4 2.4 mg subcut WEEKLY 03/25/25 04/04/25 History mg/0.75 mL subcutaneous pen injector (Wegovy) Patient hx anesthesia problems: none Family hx anesthesia problems: none Results Review: All pre-operative results and documents have been reviewed as part of the pre-operative evaluation. [facility] Family History Family History Father Family history of lung cancer Other Diabetes mellitus Social History Social History Smoking status: Never smoker Alcohol intake: current Substance use type: does not use Living arrangements: alone Anes - Eval Final PreProcedure Day of Procedure 04/04/25 09:17 Patient weight: obese Heart: regular rate and rhythm Lungs: clear to auscultation Airway: Mallampati scale class II Neurological: alert and oriented Last oral intake: >/= 8 hours ASA classification: II Emergent: no Anesthetic plan: proceed Anesthesia type and monitoring: general GIVS and standard monitoring Results Review: All pre-operative results and documents have been reviewed as part of the pre-operative evaluation. Informed Consent: The patient's anesthetic plan and its attendant risks and benefits were discussed with the patient/family/POA. Questions were solicited and answers provided to the satisfaction of the patient/family/POA.
--- NOTE | 2025-04-04 09:23 | PM.HPGS ---
History of Present Illness History of Present Illness Consent: Risks, benefits, and alternatives have been discussed and questions answered. Patient agrees to proceed with procedure. Chief complaint: Encounter for screening for malignant neoplasm of Narrative: Isidra Arreguin is a 59 year old female here for screening colonoscopy Review of Systems Review of Systems: All systems reviewed & are unremarkable except as noted in HPI and below PMFSH Past Medical History Medical History (Updated 04/04/25 @ 09:23 by Raúl Perez MD) Colon cancer screening Family History Family History Father Family history of lung cancer Other Diabetes mellitus Social History Social History Smoking status: Never smoker Alcohol intake: current Substance use type: does not use Living arrangements: alone Meds Home Medications and Allergies Home Medications ?Medication ?Instructions ?Recorded ?Confirmed ?Type semaglutide (weight loss) 2.4 2.4 mg subcut WEEKLY 03/25/25 04/04/25 History mg/0.75 mL subcutaneous pen injector (Wegovy) Allergies Allergy/AdvReac Type Severity Reaction Status Date / Time No Known Allergies Allergy Mild Verified 04/04/25 08:33 Vital Signs Vital Signs - 24 hr 04/04/25 08:28 Temperature 98.3 F Pulse Rate 75 Respiratory Rate 18 Blood Pressure 152/77 H Pulse Oximetry 100 Oxygen Delivery Room Air Exam Const: General: comfortable and no acute distress HENMT: Face/Nose/Sinus: Normal nares present Eyes: General: appearance normal, both eyes and all related structures Neck: Neck: no JVD Resp: Auscultation: clear to auscultation bilaterally Cardio: Rate: regular rate Rhythm: regular rhythm GI: Inspection: non-distended GI Palp: Yes Soft to palpation Skin: General skin exam: normal color Extrem: General: normal to inspection Psych: Mental Status: mental status grossly normal Assessment and Plan Assessment and plan (1) Colon cancer screening: Code(s): Z12.11 - Encounter for screening for malignant neoplasm of colon Status: Acute Assessment and Plan: colonoscopy
[2025-04-04 09:36] VITALS: BP 145/74; PULSE 78; RESP 18; O2SAT 98
[2025-04-04 09:46] VITALS: BP 148/87; PULSE 73; RESP 18; O2SAT 100
[2025-04-04 09:56] VITALS: BP 165/91; PULSE 70; RESP 18; O2SAT 99
== END 2025-04-04 10:06 | disposition home or self-care (01) ==
PROVIDERS: PCP Physician Assistant; Referring Provider Physician Assistant; Visit Provider Internal Medicine Gastroenterology
PROC: 0DJD8ZZ Inspection of Lower Intestinal Tract, Via Natural or Artificial Opening Endoscopic (ICD-10-PCS; CPT 45378; principal; 2025-04-04 10:00)
DX: Z12.11 Encounter for screening for malignant neoplasm of colon (principal); K57.30 Diverticulosis of large intestine without perforation or abscess without bleeding; K64.4 Residual hemorrhoidal skin tags; K62.89 Other specified diseases of anus and rectum; E66.9 Obesity, unspecified; Z68.36 Body mass index [BMI] 36.0-36.9, adult; Z79.85 Long-term (current) use of injectable non-insulin antidiabetic drugs; Z80.1 Family history of malignant neoplasm of trachea, bronchus and lung
CPT/HCPCS: 45378; J2704; J7120